=== PATIENT | male | born 1965 | race Two or more races ===

== ENCOUNTER 2017-02-13 11:16 | Emergency (ER) | payer OTHER ==
[~2017-02-13] VITALS: Ht 165.1 cm; Wt 79.4 kg
[2017-02-13] MEDS ORDERED: ALBUTEROL SULF 2.5 MG/0.5ML(0.5%) NEB SOLN NEB ONE ×2 (13:45→15:30)
[2017-02-13] MEDS ORDERED: IPRATROPIUM BROM 0.5 MG/2.5ML INH SOL NEB ONE ×2 (13:45→15:30)
[2017-02-13] MEDS ORDERED: SODIUM CHLORIDE 0.9% 1,000 ML IV ONE (13:58)
[2017-02-13] MEDS ORDERED: methylPREDNISolone SOD SUCC 125 MG/2 ML VL IV ONE (14:00)
[2017-02-13 14:16] LABS: Basophils # (auto) 0.1 uL; Eosinophils # (auto) 0.8 uL; Eosinophils % (auto) 7.8 % (0.0-7.0); Hematocrit 45.4 % (41.0-53.0); Hemoglobin 15.9 g/dL (13.5-17.5); Lymphocytes # (auto) 2.4 uL; Mean Corpuscular Hemoglobin 31.8 pg (28.0-32.0); Mean Corpuscular Hgb Conc. 35.1 g/dL (32.0-36.0); Mean Corpuscular Volume 90.8 fL (80.0-100.0); Monocytes # (auto) 0.7 uL; Monocytes % (auto) 7.1 % (0.0-12.0); Neutrophils % (auto) 60.1 % (37.0-80.0); Platelet Count (auto) 250 10^3/uL (140-450); Red Cell Distribution Width 14.3 % (11.8-14.3)
[2017-02-13 14:28] VITALS: BP 136/86
[2017-02-13 14:45] LABS: BUN/Creatinine Ratio 22.2; Calcium 8.8 mg/dL (8.5-10.1); Magnesium 2.5 mg/dL (1.6-2.6); Potassium 4.4 mmol/L (3.5-5.1)
== END 2017-02-13 16:08 | disposition home or self-care (01) ==
LOC: ER 11:16
DX: J45.901 Unspecified asthma with (acute) exacerbation (principal); F17.210 Nicotine dependence, cigarettes, uncomplicated
CPT/HCPCS: 36415; 71020; 80048; 83735; 85025; 93005; 94640; 94761; 96361; 96374; 99285; J2930; J7030

== ENCOUNTER 2017-09-25 12:54 | Emergency (ER) | payer OTHER ==
[~2017-09-25] VITALS: Ht 165.1 cm; Wt 73.0 kg
[2017-09-25 13:01] VITALS: BP 125/91
[2017-09-25] MEDS ORDERED: KETOROLAC TROMETH 60MG/2ML VIAL IM ONE (14:15)
== END 2017-09-25 14:33 | disposition home or self-care (01) ==
LOC: ER 12:54
DX: B00.89 Other herpesviral infection (principal); L03.113 Cellulitis of right upper limb; J45.909 Unspecified asthma, uncomplicated; F17.210 Nicotine dependence, cigarettes, uncomplicated
CPT/HCPCS: 96372; 99283; J1885

== ENCOUNTER 2018-02-27 12:21 | Emergency (ER) | payer SELFPAY ==
[~2018-02-27] VITALS: Ht 165.1 cm; Wt 66.7 kg
[2018-02-27 12:47] VITALS: BP 139/90
[2018-02-27] MEDS ORDERED: ALBUTEROL SULF 2.5 MG/0.5ML(0.5%) NEB SOLN NEB ONE (13:15)
[2018-02-27] MEDS ORDERED: IPRATROPIUM BROM 0.5 MG/2.5ML INH SOL NEB ONE (13:15)
== END 2018-02-27 13:55 | disposition home or self-care (01) ==
LOC: ER 12:21
DX: J45.901 Unspecified asthma with (acute) exacerbation (principal); F17.210 Nicotine dependence, cigarettes, uncomplicated; Z76.0 Encounter for issue of repeat prescription
CPT/HCPCS: 94640; 99283; J7611; J7644

== ENCOUNTER 2018-02-28 13:38 | Emergency (ER) | payer MEDICAID, OTHER ==
[~2018-02-28] VITALS: Ht 165.1 cm; Wt 66.7 kg
[2018-02-28 13:43] VITALS: BP 139/83
[2018-02-28] MEDS ORDERED: IPRATROPIUM BROM 0.5 MG/2.5ML INH SOL NEB ONE (15:15)
[2018-02-28] MEDS ORDERED: ALBUTEROL SULF 2.5 MG/0.5ML(0.5%) NEB SOLN NEB ONE (15:15)
== END 2018-02-28 15:42 | disposition home or self-care (01) ==
LOC: ER 13:38
DX: J45.909 Unspecified asthma, uncomplicated (principal); F17.210 Nicotine dependence, cigarettes, uncomplicated
CPT/HCPCS: 93005; 94640; 99283; J7611; J7644

== ENCOUNTER 2018-03-04 13:45 | Emergency (ER) | payer MEDICAID ==
[~2018-03-04] VITALS: Ht 165.1 cm; Wt 66.7 kg
[2018-03-04 14:02] VITALS: BP 148/87
[2018-03-04] MEDS ORDERED: IPRATROPIUM BROM 0.5 MG/2.5ML INH SOL NEB ONE (15:45)
[2018-03-04] MEDS ORDERED: methylPREDNISolone SOD SUCC 125 MG/2 ML VL IM ONE (15:45)
[2018-03-04] MEDS ORDERED: ALBUTEROL SULF 2.5 MG/0.5ML(0.5%) NEB SOLN NEB ONE (15:45)
== END 2018-03-04 16:19 | disposition home or self-care (01) ==
LOC: ER 13:45
DX: J45.901 Unspecified asthma with (acute) exacerbation (principal); F17.210 Nicotine dependence, cigarettes, uncomplicated
CPT/HCPCS: 93005; 94640; 96372; 99283; J2930; J7611; J7644

== ENCOUNTER 2018-09-10 16:07 | Emergency (ER) | payer MEDICAID ==
[~2018-09-10] VITALS: Ht 162.6 cm; Wt 70.3 kg
[2018-09-10] MEDS ORDERED: ALBUTEROL SULF 2.5 MG/0.5ML(0.5%) NEB SOLN NEB ONE (16:15)
[2018-09-10] MEDS ORDERED: IPRATROPIUM BROM 0.5 MG/2.5ML INH SOL NEB ONE (16:15)
[2018-09-10 16:25] VITALS: BP 130/92
[2018-09-10] MEDS ORDERED: methylPREDNISolone SOD SUCC 125 MG/2 ML VL IM ONE (17:15)
== END 2018-09-10 17:54 | disposition home or self-care (01) ==
LOC: ER 16:13
DX: J45.909 Unspecified asthma, uncomplicated (principal); F17.210 Nicotine dependence, cigarettes, uncomplicated
CPT/HCPCS: 94640; 96372; 99283; J2930; J7611; J7644

== ENCOUNTER 2019-01-07 01:15 | Inpatient (IN) | payer MEDICAID ==
[2019-01-07] VITALS (68 sets, daily range): BP systolic 117–167; BP diastolic 75–120
[~2019-01-07] VITALS: Ht 167.6 cm; Wt 70.6 kg
[2019-01-07] MEDS ORDERED: ALBUTEROL SULF 2.5 MG/0.5ML(0.5%) NEB SOLN ONE ×3 (01:36→10:27)
[2019-01-07] MEDS ORDERED: IPRATROPIUM BROM 0.5 MG/2.5ML INH SOL ONE ×2 (01:36→10:27)
[2019-01-07] MEDS ORDERED: NOREPINEPHRINE 8 MG/250ML KIT 250 ML IV ONE (01:43)
[2019-01-07] MEDS ORDERED: ALBUTEROL SULF 2.5 MG/0.5ML(0.5%) NEB SOLN NEB ONE ×2 (01:45→05:35)
[2019-01-07 02:02] LABS: Urine WBC None Seen /hpf (0 - 3)
[2019-01-07 02:05] LABS: Basophils # (auto) 0 uL; Basophils % (auto) 0.3 % (0.0-2.0); Eosinophils % (auto) 8.7 % (0.0-7.0); Hemoglobin 14.8 g/dL (13.5-17.5); Lymphocytes # (auto) 4.8 uL; Lymphocytes % (auto) 43.4 % (10.0-50.0); Mean Corpuscular Hemoglobin 31.1 pg (28.0-32.0); Mean Corpuscular Hgb Conc. 32.1 g/dL (32.0-36.0); Mean Corpuscular Volume 96.9 fL (80.0-100.0); Monocytes # (auto) 0.5 uL; Monocytes % (auto) 4.8 % (0.0-12.0); Neutrophils # (auto) 4.7 uL; Neutrophils % (auto) 42.8 % (37.0-80.0); Nucleated Red Blood Cells % 0.1 %; Platelet Count (auto) 194 10^3/uL (140-450); Red Blood Cells 4.75 10^6/uL (4.5-5.90); White Blood Cell 11.1 10^3/uL (4.4-10.8)
[2019-01-07 02:08] LABS: Urine Bacteria MANY /hpf (None Seen); Urine Blood TRACE /uL (Negative); Urine Specific Gravity 1.026 (1.001-1.035); Urine Sperm PRESENT /hpf (None Seen)
[2019-01-07 02:20] LABS: INR 1.1 (0.9-1.15); Partial Thromboplastin Time 57.6 sec (23.64-32.05)
[2019-01-07 02:26] LABS: Alcohol, Urine < 3.0 mg/dL (0-5); Amphetamine Screen, Urine POSITIVE (NEGATIVE); Barbiturate Scree,Urine NEGATIVE (NEGATIVE); Benzodiazephine Screen, Urine NEGATIVE (NEGATIVE); Cannabinoid Screen, Urine POSITIVE (NEGATIVE); Cocaine Screen, Urine NEGATIVE (NEGATIVE); Opiate Scree,Urine NEGATIVE (NEGATIVE); Phencyclidine Screen, Urine NEGATIVE (NEGATIVE)
[2019-01-07 02:26] LABS: Anion Gap 20 (5-15); Calcium 8.3 mg/dL (8.5-10.1); Carbon Dioxide 15 mmol/L (21-32); Chloride 106 mmol/L (98-107); Glucose 302 mg/dL (74-106); Magnesium 3.2 mg/dL (1.6-2.6); Sodium 141 mmol/L (136-145)
[2019-01-07 02:32] LABS: Alanine Aminotransferase 121 U/L (16-61); Alkaline Phosphatase 89 U/L (45-117); Aspartate Aminotransferase 176 U/L (15-37); BUN/Creatinine Ratio 9.7; Bilirubin, Total 0.3 mg/dL (0.2-1.0); Blood Urea Nitrogen 15 mg/dL (7-18); GFR African American 61 mL/min; GFR Non-African American 50 mL/min
[2019-01-07] MEDS ORDERED: MIDAZOLAM DRIP 50 mg/50mL 50 ML IV ONE (02:42)
[2019-01-07] MEDS ORDERED: DexAMETHasone SOD PHOS 10MG/1ML VIAL INJ ONE (02:48)
[2019-01-07] MEDS: NOREPINEPHRINE 8 MG/250ML KIT 250 ML IV SCH (03:12)
--- NOTE | 2019-01-07 03:18 | NUR ---
Respiratory note: FIO2 TITRATED TO 50% FIO2 AND VT INCREASED ON VENTILATOR FORM [address] RIOS[address] DB BLANDON MADE AWARE.
[2019-01-07] MEDS: MIDAZOLAM DRIP 50 mg/50mL 50 ML IV SCH ×3 (03:25→15:04)
[2019-01-07] MEDS ORDERED: DexAMETHasone SOD PHOS 10MG/1ML VIAL INJ IV ONE (03:45)
[2019-01-07] MEDS ORDERED: LEVETIRACETAM INJ 1,000 MG in D5W 5% 100 ML IV ONE (05:15)
[2019-01-07] MEDS ORDERED: LEVETIRACETAM 500 MG/5ML INJ IV ONE (05:19)
[2019-01-07] MEDS ORDERED: IPRATROPIUM BROM 0.5 MG/2.5ML INH SOL NEB ONE (05:35)
[2019-01-07] MEDS: SODIUM CHLORIDE 0.9% 1,000 ML IV SCH ×2 (06:00→20:24)
[2019-01-07] MEDS ORDERED: NITROGLYCERIN 0.4 MG SL TAB SL PRN (06:00)
[2019-01-07] MEDS ORDERED: ONDANSETRON HCL 4 MG/2 ML VIAL IV PRN (06:00)
[2019-01-07] MEDS ORDERED: MORPHINE SULF INJ 2 MG/ML SYRINGE 1ML IV PRN (06:00)
[2019-01-07] MEDS ORDERED: DEXTROSE (50%) 50ML SYRG IV PRN (06:45)
--- NOTE | 2019-01-07 08:50 | NUR ---
OPENING NOTE SHIFT REPORT RECEIVED FROM ADRIA AND ASSUMED CARE OF PT. PT IS INTUBATED ON VENT A/C RATE 12, TV 500, FI02 30%, PEEP 5, SIZE 8, 24CM AT THE LIP. PT IS SEDATED ON VERSED 15. IV SITES: RIGHT AC 18 GAUGE, LEFT AC 18 GAUGE, LEFT HAND 20 GAUGE. PUPILS UNEVEN AND FIXED: RIGHT 2.5, LEFT 2, NO COUGH OR GAG. PT IS EXHIBITING IRREGULAR BREATHING OVER THE VENT. VITAL SIGNS: HR 111, RR 34, TEMP 98.6 F, BP 159/96, O2SAT 100%. WILL ASK PHYSICIAN FOR FENTANYL FOR PT'S ELEVATED VITAL SIGNS AND IRREGULAR BREATHING ABOVE THE VENT. LUNG SOUNDS RHONCI AND WHEEZING AUDIBLE THROUGHOUT. BOWEL SOUNDS ABSENT. ABD SOFT, WITH SLIGHT DISTENTION. RADIAL PULSES PALPABLE AND STRONG, PEDAL PULSES WEAK WITH DOPPLER. BED IN LOWEST POSITION, SIDE RAILS UP. WILL CONTINUE TO MONITOR
--- NOTE | 2019-01-07 08:55 | NUR ---
RT NOTE: PT TRANSPORTED TO ICU BED 12 WITH RN BEDSIDE AND 2ND RT BRINGING VENT. PT BAGGED ON 15L VIA AMBU BAG. PT SUCTIONED JUST PRIOR TO TRANSPORT SECRETIONS SMALL/THICK/FISH. TRANSPORT OCCURRED W/O INCIDENT. ONCE TRANSFERRED TO ICU BED, PLACED BACK ONTO BEDSIDE VENT. TRANSFERRING CARE TO RT ABI CRAFT.
[2019-01-07] MEDS: cefTRIAXone 1GM/50ML D5W 50 ML IV SCH (09:52)
[2019-01-07] MEDS: DexAMETHasone SOD PHOS 10MG/1ML VIAL INJ IV SCH ×2 (09:53→16:00)
[2019-01-07] MEDS ORDERED: ENOXAPARIN SOD 40 MG/0.4 ML SYRINGE SC SCH (10:00)
[2019-01-07] MEDS ORDERED: BUDESONIDE (INHALATION) 0.5 MG/2 ML NEB ONE (10:27)
[2019-01-07] MEDS ORDERED: fentaNYL Drip 2500mCg/250mlNS 250 ML IV ONE (10:32)
[2019-01-07] MEDS: ALBUTEROL SULF 2.5 MG/0.5ML(0.5%) NEB SOLN NEB SCH ×4 (10:37→21:37)
[2019-01-07] MEDS: IPRATROPIUM BROM 0.5 MG/2.5ML INH SOL NEB SCH ×4 (10:37→21:37)
[2019-01-07] MEDS: fentaNYL Drip 2500mCg/250mlNS 250 ML IV SCH (10:47)
--- NOTE | 2019-01-07 11:50 | NUR ---
GILL BOX OPERATOR AT BEDSIDE
[2019-01-07] MEDS: InsuLIN REG 1unit/0.01ml Soln (100units/ml) SC SCH ×2 (11:51→18:00)
[2019-01-07] MEDS: ACCU-CHEK COMFORT CURVE STRIP VI SCH ×2 (11:54→18:00)
--- NOTE | 2019-01-07 13:30 | NUR ---
CLAY MACHINE OPERATOR AT BEDSIDE
[2019-01-07] MEDS: BUDESONIDE (INHALATION) 0.5 MG/2 ML NEB NEB SCH ×2 (14:40→18:30)
[2019-01-07] MEDS: hydrALAZINE HCL 25 MG TAB PO SCH ×2 (14:48→22:10)
[2019-01-07] MEDS: methylPREDNISolone SOD SUCC 125 MG/2 ML VL IV SCH ×2 (14:48→22:06)
--- NOTE | 2019-01-07 15:51 | NUR ---
DR. BERRY PAGED REGARDING ELEVATED TROPONIN LEVEL 0.998.
--- NOTE | 2019-01-07 16:09 | NUR ---
RECEIVED MESSAGE BACK FROM DR. BERRY HE IS AWARE. PT IS S/P CPR. NO NEW ORDERS AT THIS TIME. NEURO CONSULTED FOR FURTHER WORK UP. WILL CONTINUE TO MONITOR.
--- NOTE | 2019-01-07 16:40 | NUR ---
DR. GALO AT BEDSIDE NO NEW ORDERS AT THIS TIME
--- NOTE | 2019-01-07 16:45 | NUR ---
PT EXHIBITS WITH SPONTANEOUS SPORADIC MYOCLONIC JERKING. DR. IRAJ BRAND.
[2019-01-07] MEDS ORDERED: LEVETIRACETAM INJ 500 MG in D5W 5% 100 ML IV SCH (18:00)
--- NOTE | 2019-01-07 19:20 | NUR ---
CLOSING NOTE SHIFT REPORT GIVEN AND CARE ENDORSED TO CELESTINA ACE
[2019-01-07 19:22] LABS: Hematocrit 55.8 % (41.0-53.0); Hemoglobin 18.7 g/dL (13.5-17.5); Mean Corpuscular Hemoglobin 30.7 pg (28.0-32.0); Mean Corpuscular Hgb Conc. 33.4 g/dL (32.0-36.0); Mean Corpuscular Volume 91.8 fL (80.0-100.0); Platelet Count (auto) 220 10^3/uL (140-450); Red Blood Cells 6.08 10^6/uL (4.5-5.90); Red Cell Distribution Width 14.9 % (11.8-14.3)
[2019-01-07 19:26] LABS: White Blood Cell 34.7 10^3/uL (4.4-10.8)
[2019-01-07 19:28] LABS: Basophils % (manual) 0 (0.0-2.0); Blast Cells 0; Eosinophils % (manual) 0 (0-7); Metamyelocytes % 0; Myelocytes % 0; Promyelocytes % 0; Reactive Lymphocytes 0
[2019-01-07 19:37] LABS: INR 1.03 (0.9-1.15); Partial Thromboplastin Time 28.7 sec (23.64-32.05)
[2019-01-07 19:43] LABS: Albumin 3.5 g/dL (3.4-5.0); Bilirubin, Direct 0.2 mg/dL (0-0.2); Calcium 8.4 mg/dL (8.5-10.1); Magnesium 2.6 mg/dL (1.6-2.6)
[2019-01-07 19:46] LABS: BUN/Creatinine Ratio 18.3; Bilirubin, Total 0.3 mg/dL (0.2-1.0); Total Protein 7.5 g/dL (6.4-8.2)
--- NOTE | 2019-01-07 20:00 | NUR ---
SEDATION RESTARTED PATIENT IS HAVING IRREGULAR ABDOMINAL BREATHING AND THE RESP.RATE IS 20- 29/MIN. VERSED RESTARTED AT 5MG/HR.
[2019-01-07 20:48] LABS: Band Neutrophils % (manual) 15; Lymphocytes % (manual) 1 (10.0-50.0); Monocytes % (manual) 3 (0-12)
[2019-01-07] MEDS ORDERED: ENOXAPARIN SOD 80 MG/0.8ML SYRINGE SC SCH (22:00)
[2019-01-07] MEDS: CARVEDILOL 3.125 MG TAB PO SCH (22:07)
[2019-01-07] MEDS: ATORVASTATIN 20 MG TAB PO SCH (22:09)
--- NOTE | 2019-01-07 23:43 | NUR ---
(FOR ) NOTIFIED PT'S ELEVATED WBC LEVEL. NO ORDERS RECEIVED.
[2019-01-08] VITALS (107 sets, daily range): BP systolic 121–173; BP diastolic 75–109
[2019-01-08] MEDS: ACCU-CHEK COMFORT CURVE STRIP VI SCH ×5 (00:21→23:52)
[2019-01-08] MEDS: InsuLIN REG 1unit/0.01ml Soln (100units/ml) SC SCH ×5 (00:22→23:52)
[2019-01-08] MEDS: MIDAZOLAM DRIP 50 mg/50mL 50 ML IV SCH (00:27)
[2019-01-08] MEDS: ALBUTEROL SULF 2.5 MG/0.5ML(0.5%) NEB SOLN NEB SCH ×6 (02:07→22:29)
[2019-01-08] MEDS: IPRATROPIUM BROM 0.5 MG/2.5ML INH SOL NEB SCH ×6 (02:07→22:29)
[2019-01-08] MEDS: NOREPINEPHRINE 8 MG/250ML KIT 250 ML IV SCH (03:12)
--- NOTE | 2019-01-08 04:19 | NUR ---
RECEIVED PHONE CALL FROM [facility] AND UPDATED PT'S STATUS.
[2019-01-08 04:45] LABS: Mean Corpuscular Hgb Conc. 33.1 g/dL (32.0-36.0)
[2019-01-08 04:48] LABS: Hematocrit 53.6 % (41.0-53.0); Hemoglobin 17.7 g/dL (13.5-17.5); Mean Corpuscular Hemoglobin 30.3 pg (28.0-32.0); Mean Corpuscular Volume 91.4 fL (80.0-100.0); Platelet Count (auto) 206 10^3/uL (140-450); Red Blood Cells 5.86 10^6/uL (4.5-5.90); Red Cell Distribution Width 14.9 % (11.8-14.3)
[2019-01-08 05:04] LABS: INR 1.07 (0.9-1.15); Partial Thromboplastin Time 31.5 sec (23.64-32.05)
[2019-01-08 05:06] LABS: Potassium 4.5 mmol/L (3.5-5.1)
[2019-01-08 05:13] LABS: Calcium 8.5 mg/dL (8.5-10.1); Magnesium 2.3 mg/dL (1.6-2.6); Total Protein 6.8 g/dL (6.4-8.2)
[2019-01-08 05:15] LABS: Bilirubin, Total 0.5 mg/dL (0.2-1.0)
[2019-01-08] MEDS: hydrALAZINE HCL 25 MG TAB PO SCH ×3 (05:19→22:04)
[2019-01-08 05:21] LABS: White Blood Cell 34.8 10^3/uL (4.4-10.8)
[2019-01-08 05:22] LABS: Basophils % (manual) 0 (0.0-2.0); Blast Cells 0; Eosinophils % (manual) 0 (0-7); Metamyelocytes % 0; Myelocytes % 0; Promyelocytes % 0; Reactive Lymphocytes 0
[2019-01-08] MEDS: methylPREDNISolone SOD SUCC 125 MG/2 ML VL IV SCH ×3 (06:05→22:04)
[2019-01-08] MEDS: LABETALOL HCL 5 MG/ML ML 20ML VIAL IV PRN ×3 (06:05→23:43)
[2019-01-08 06:30] LABS: Band Neutrophils % (manual) 8; Lymphocytes % (manual) 3 (10.0-50.0); Monocytes % (manual) 4 (0-12)
--- NOTE | 2019-01-08 06:50 | NUR ---
FAMILY RECEIVED PHONE CALL FROM PT'S DAUGHTER, CONFIRMED PASSWORD AND UPDATES GIVEN.
--- NOTE | 2019-01-08 07:05 | NUR ---
OPENING NOTE SHIFT REPORT RECEIVED AND ASSUMED CARE OF PT FROM CELESTINA ACE
[2019-01-08] MEDS: SODIUM CHLORIDE 0.9% 1,000 ML IV SCH ×2 (08:26→22:04)
--- NOTE | 2019-01-08 08:45 | NUR ---
DR. BERRY AT BEDSIDE ORDERS RECEIVED
[2019-01-08] MEDS: cefTRIAXone 1GM/50ML D5W 50 ML IV SCH (09:09)
[2019-01-08] MEDS: BUDESONIDE (INHALATION) 0.5 MG/2 ML NEB NEB SCH ×2 (09:40→22:29)
[2019-01-08] MEDS: ENOXAPARIN SOD 80 MG/0.8ML SYRINGE SC SCH ×2 (10:23→22:05)
[2019-01-08] MEDS: ASPirin 81 mg TAB PO SCH (10:23)
[2019-01-08] MEDS: CARVEDILOL 3.125 MG TAB PO SCH ×2 (10:24→22:05)
--- NOTE | 2019-01-08 11:00 | NUR ---
FAMILY MEETING DR. GALO WITH THIS RN PRESENT. SPOKE WITH MOTHER AND SISTER REGARDING PT STATUS AND PROGNOSIS. FAMILY VERBALIZES UNDERSTANDING AND STATES THEY WILL SPEAK WITH PT'S DAUGHTER-NEXT OF KIN. NO FURTHER QUESTIONS OR CONCERNS AT THIS TIME
--- NOTE | 2019-01-08 11:00 | NUR ---
FURNITURE SERVICER AT BEDSIDE
--- NOTE | 2019-01-08 11:35 | NUR ---
EEG COMPLETED AT BEDSIDE. DB BRAND.
[2019-01-08] MEDS: fentaNYL Drip 2500mCg/250mlNS 250 ML IV SCH (12:14)
--- NOTE | 2019-01-08 13:30 | NUR ---
DR. AMAYA AT BEDSIDE NO NEW ORDERS
--- NOTE | 2019-01-08 14:00 | NUR ---
WOUND CARE NOTE: Wound care consult received because patient is intubated and sedated. Patient is a 53yo male admitted for s/p CPR and anoxic brain injury. Patient with a history of asthma and meth use. Patient seen with bedside RNHeather. Patient is intubated and sedated with no signs or symptoms of pain. Last Justice score is 12. Patient skin is intact. No wounds noted. RECOMMENDATIONS: Dietary consult; Turn q2hrs; Nursing to cleanse skin to buttocks with mild soap and water, pat dry, apply ZGUARD BID/PRN soiling, may apply a sacral OPTIFOAM GENTLE dressing to prevent friction/shear injury; wound care team to follow while intubated and justice <18.
--- NOTE | 2019-01-08 16:00 | NUR ---
RECEIVED CALL FROM GILBERTO WITH [facility]. UPDATED ON PT STATUS. WOULD LIKE A CALL IF PLAN OF CARE CHANGES, ANY SIGNIFICANT CHANGES, OR WITHDRAWAL OF LIFE SUPPORT.
--- NOTE | 2019-01-08 19:05 | NUR ---
OPENING SHIFT RECEIVED REPORT FROM DAY SHIFT RN. ASSUMED CARE OF PATIENT. PATIENT IN BED SEDATED AND INTUBATED SIZE 8, 26 AT THE LIP, WITH NO SIGNS OF SOB, PAIN OR DISTRESS. CURRENTLY ON AC 12/TV 500/PEEP 5/ FI02 30%, 02 SAT - 96%. OG TUBE CONNECTED TO LOW INTERMITTENT SUCTION. RIGHT ANTECUBITAL, LEFT ANTECUBITAL AND LEFT HAND IV - CLEAN/DRY/INTACT. DRUMMOND HUNG TO GRAVITY ON BED RAIL. REPOSITIONED FOR COMFORT. SCDS IN PLACE. BED IN LOWEST POSITION, SIDE RAILS UP X2, CALL LIGHT WITHIN REACH. WILL CONTINUE TO MONITOR.
--- NOTE | 2019-01-08 19:05 | NUR ---
CLOSING NOTE SHIFT REPORT GIVEN AND CARE ENDORSED TO BILLYPRINCE
--- NOTE | 2019-01-08 20:19 | NUR ---
SPOKE WITH DAUGHTER (LAURA) UPDATED HER ON PLAN OF CARE.
[2019-01-09] VITALS (101 sets, daily range): BP systolic 131–226; BP diastolic 79–136
[2019-01-09] MEDS: MIDAZOLAM DRIP 50 mg/50mL 50 ML IV SCH (02:19)
[2019-01-09] MEDS: IPRATROPIUM BROM 0.5 MG/2.5ML INH SOL NEB SCH ×6 (02:30→22:36)
[2019-01-09] MEDS: ALBUTEROL SULF 2.5 MG/0.5ML(0.5%) NEB SOLN NEB SCH ×6 (02:30→22:36)
[2019-01-09] MEDS: NOREPINEPHRINE 8 MG/250ML KIT 250 ML IV SCH (03:12)
[2019-01-09 03:48] LABS: Hemoglobin 16.2 g/dL (13.5-17.5); Mean Corpuscular Volume 90.9 fL (80.0-100.0); Red Cell Distribution Width 14.7 % (11.8-14.3)
--- NOTE | 2019-01-09 03:50 | NUR ---
MORNING CARE PERFORMED MORNING CARE WITH CHG WIPES AND WASH CLOTHS TO THE FACE. PARTIAL LINEN CHANGE AND GOWN CHANGED. ORAL CARE PERFORMED. SKIN REASSESSED AT THIS TIME. REPOSITIONED FOR COMFORT. WILL CONTINUE TO MONITOR.
[2019-01-09 03:52] LABS: Hematocrit 47.4 % (41.0-53.0); Mean Corpuscular Hgb Conc. 34.1 g/dL (32.0-36.0); Platelet Count (auto) 172 10^3/uL (140-450); Red Blood Cells 5.21 10^6/uL (4.5-5.90)
[2019-01-09 04:08] LABS: Calcium 8.6 mg/dL (8.5-10.1); Magnesium 2.3 mg/dL (1.6-2.6); Potassium 4.3 mmol/L (3.5-5.1)
[2019-01-09 04:10] LABS: BUN/Creatinine Ratio 36.6
[2019-01-09 04:17] LABS: Basophils % (manual) 0 (0.0-2.0); Blast Cells 0; Eosinophils % (manual) 0 (0-7); Metamyelocytes % 0; Myelocytes % 0; Promyelocytes % 0; Reactive Lymphocytes 0
--- NOTE | 2019-01-09 05:06 | NUR ---
SPOKE WITH BOB FROM [facility] AND UPDATED HER ON PATIENT STATUS.
[2019-01-09] MEDS: InsuLIN REG 1unit/0.01ml Soln (100units/ml) SC SCH ×4 (05:45→23:58)
[2019-01-09] MEDS: ACCU-CHEK COMFORT CURVE STRIP VI SCH ×4 (05:46→23:58)
[2019-01-09] MEDS: hydrALAZINE HCL 25 MG TAB PO SCH ×3 (05:50→22:11)
[2019-01-09] MEDS: methylPREDNISolone SOD SUCC 125 MG/2 ML VL IV SCH ×3 (05:50→22:10)
[2019-01-09 06:09] LABS: Band Neutrophils % (manual) 3; Lymphocytes % (manual) 2 (10.0-50.0); Monocytes % (manual) 1 (0-12)
--- NOTE | 2019-01-09 07:30 | NUR ---
END OF SHIFT REPORT GIVEN TO DAY SHIFT RN.
--- NOTE | 2019-01-09 07:45 | NUR ---
OPENING NOTE Report received from Harsh ACE, care assumed. Patient is intubated and under sedation of Versed and Fentanyl. Afebrile. Physical assessment performed. Pupils fixed, no cough or gag noted. Lungs have notable wheeze, tolerating ventilator. Vital signs stable at this time. Guerrero catheter patent, hung below bladder. See skin assessment. Bed locked in lowest position, alarms in place. Will continue to monitor.
--- NOTE | 2019-01-09 07:50 | NUR ---
MD VISIT at bedside. MD aware of sedation in use. MD assessing patient and reviewing chart.
[2019-01-09] MEDS: fentaNYL Drip 2500mCg/250mlNS 250 ML IV SCH (08:55)
[2019-01-09] MEDS: cefTRIAXone 1GM/50ML D5W 50 ML IV SCH (08:55)
--- NOTE | 2019-01-09 09:14 | NUR ---
NEPHROLOGY CONSULT at bedside for consult.
[2019-01-09] MEDS: ASPirin 81 mg TAB PO SCH (09:35)
[2019-01-09] MEDS: ENOXAPARIN SOD 80 MG/0.8ML SYRINGE SC SCH (09:35)
[2019-01-09] MEDS: CARVEDILOL 3.125 MG TAB PO SCH (09:35)
[2019-01-09] MEDS: SODIUM CHLORIDE 0.9% 1,000 ML IV SCH (09:35)
[2019-01-09] MEDS ORDERED: VANCOMYCIN PER PHARMACY 0 MG IV SCH (10:00)
--- NOTE | 2019-01-09 10:21 | NUR ---
MD VISIT at bedside speaking with patient mother and daughter about plan of care. All questions and concerns addressed at this time.
--- NOTE | 2019-01-09 10:40 | NUR ---
FAMILY Patient daughter and mother at bedside. Updated on plan of care.
[2019-01-09] MEDS: BUDESONIDE (INHALATION) 0.5 MG/2 ML NEB NEB SCH ×2 (10:48→18:26)
--- NOTE | 2019-01-09 11:10 | NUR ---
SEDATION Sedation titrated off per request. MD at bedside discussing plan of care with patient daughter and mother. All questions and concerns addressed. Patient is agonally breathing, rate decreased and irregular. Oxygen saturation 98%. No other distress noted. Lung sounds have wheezing noted. Small run of ventricular tachycardia noted immediately after breathing pattern change noted. No ventilator changes ordered at this time. Continue care.
[2019-01-09] MEDS: LABETALOL HCL 5 MG/ML ML 20ML VIAL IV PRN ×6 (11:16→22:58)
[2019-01-09] MEDS: VANCOMYCIN 1GM/250ML 250 ML IV SCH ×2 (11:16→22:35)
--- NOTE | 2019-01-09 11:16 | NUR ---
HYPERTENSION Patient blood pressure elevated more since sedation has been titrated off. PRN Labetalol given, will continue to monitor.
--- NOTE | 2019-01-09 11:33 | NUR ---
Received a consult for patient to receive information regarding ETOH/Substance abuse. Unable to provide information at this time as patient in on a ventilator. Addendum: 01/09/19 at 1134 by GISSELLE GREGORIO SS Amended: Links added.
--- NOTE | 2019-01-09 11:35 | NUR ---
NUTRITION CONSULT/ASSESSMENT NOTES Please refer to link notes of nutrition screen form filed under the intervention section of the plan of care for further details. Est. Needs: 1750 kcal to 2100 kcal (25-30 kcal/kgBW), 71 gms to 85 gms pro (1.0-1.2 gms/kgBW). Will continue to monitor pertinent labs and reassess nutrient need prn Thank you for this consult. Addendum: 01/09/19 at [address] Amended: Links added.
--- NOTE | 2019-01-09 13:16 | NUR ---
HYPERTENSION Patient blood pressure elevated. PRN Labetalol given, will continue to monitor.
--- NOTE | 2019-01-09 14:42 | NUR ---
Called/paged Dr. Wolff called re:Hypertension. Waiting for call back. Continue care.
--- NOTE | 2019-01-09 15:16 | NUR ---
HYPERTENSION Patient blood pressure elevated with systolic greater than 200. PRN Labetalol given, will continue to monitor.
--- NOTE | 2019-01-09 15:16 | NUR ---
Called/paged Dr. Wolff called re:Hypertension. Waiting for call back. Continue care.
--- NOTE | 2019-01-09 15:58 | NUR ---
Called/paged Dr. Schwartz called re:elevated blood pressure. Orders received. Continue care.
[2019-01-09] MEDS: hydrALAZINE HCL 20 MG/ML VL IV PRN ×2 (16:26→23:23)
--- NOTE | 2019-01-09 16:26 | NUR ---
HYPERTENSION Patient blood pressure elevated greater than 200 systolic with diastolic in 100's. PRN Hydralazine given, will continue to monitor.
--- NOTE | 2019-01-09 17:19 | NUR ---
returned call Dr. Wolff returned call, updated on patient status and reason for call, orders received. Continue care.
[2019-01-09] MEDS ORDERED: amLODIPine BESYLATE 5 MG TAB PO ONE (17:30)
--- NOTE | 2019-01-09 19:15 | NUR ---
OPENING SHIFT RECEIVED REPORT FROM DAY SHIFT RN. ASSUMED CARE OF PATIENT. PATIENT IS VENTED AND CURRENTLY OFF SEDATION SHOWING SIGNS OF GUPPY BREATHING, BLOOD PRESSURE - 199/118. RESTARTED ON VERSED GTT AT 2MG/HR TO KEEP PATIENT COMFORTABLE. ENDOTRACHEAL TUBE SIZE 8, 26 AT THE LIP, AC 12 /TV 500/ FIO2 100% / PEEP 5, 02 SAT - 99%. OG TUBE - 55 AT THE LIP, PLACEMENT VERIFIED VIA AUSCULTATION, CONNECTED TO LOW INTERMITTENT SUCTION. RIGHT ANTECUBITAL, LEFT ANTECUBITAL AND LEFT HAND IV - CLEAN/DRY/INTACT. DRUMMOND HUNG TO GRAVITY ON BED RAIL. REPOSITIONED FOR COMFORT. BED IN LOWEST POSITION, SIDE RAILS UP X2, CALL LIGHT WITHIN REACH. WILL CONTINUE TO MONITOR. Addendum: 01/09/19 at 2035 by LI FINK RN RN * ABSENT GAG AND COUGH REFLEX WHEN SUCTIONED.
--- NOTE | 2019-01-09 19:18 | NUR ---
REPORT Report given to Harsh ACE, care endorsed.
--- NOTE | 2019-01-09 19:30 | NUR ---
BLOOD PRESSURE PATIENT BLOOD PRESSURE GREATER THAN 190 SYSTOLIC WITH DIASTOLIC IN THE 110'S. PRN LABETALOL GIVEN, WILL CONTINUE TO MONITOR.
--- NOTE | 2019-01-09 20:05 | NUR ---
NEURO AND SEDATION PATIENT CONTINUES TO HAVE GUPPY BREATHING AND JERKY HEAD MOVEMENTS. VERSED INCREASED TO 3MG. WILL CONTINUE TO MONITOR.
--- NOTE | 2019-01-09 21:05 | NUR ---
ROUNDS PATIENT SEDATED WITH NO SIGNS OF GUPPY BREATHING. WILL CONTINUE TO MONITOR.
[2019-01-09] MEDS ORDERED: CARVEDILOL 3.125 MG TAB PO SCH (22:00)
[2019-01-09] MEDS: CARVEDILOL 12.5 MG TAB PO SCH (22:11)
--- NOTE | 2019-01-09 23:00 | NUR ---
BLOOD PRESSURE ELEVATED BLOOD PRESSURE, PRN LABETALOL GIVEN. WILL CONTINUE TO MONITOR.
--- NOTE | 2019-01-09 23:01 | NUR ---
NEURO AND SEDATION PATIENT CONTINUES TO HAVE ELEVATED BLOOD PRESSURE AND JERKY HEAD MOVEMENTS. FENTANYL STARTED AT 25MCG. WILL CONTINUE TO MONITOR.
--- NOTE | 2019-01-09 23:25 | NUR ---
BLOOD PRESSURE BLOOD PRESSURE CONTINUES TO STAY ELEVATED, PRN HYDRALAZINE GIVEN. WILL CONTINUE TO MONITOR.
[2019-01-10] VITALS (104 sets, daily range): BP systolic 114–206; BP diastolic 74–124
--- NOTE | 2019-01-10 00:27 | NUR ---
NEURO/SEDATION/BLOOD PRESSURE. PATIENT APPEARS TO BE COMFORTABLY BREATHING, TOLERATING THE VENT. CURRENTLY ON VERSED AND FENTANYL - SEE IV SPREADSHEET. BLOOD PRESSURE CONTINUES TO STAY ELEVATED AT 155/104, HEART RATE - 104, RESPIRATIONS AT 20, 02 SAT - 95%. WILL CONTINUE TO MONITOR.
[2019-01-10] MEDS: SODIUM CHLORIDE 0.9% 1,000 ML IV SCH ×2 (01:00→16:53)
[2019-01-10] MEDS: LABETALOL HCL 5 MG/ML ML 20ML VIAL IV PRN ×4 (01:15→17:33)
[2019-01-10] MEDS: ALBUTEROL SULF 2.5 MG/0.5ML(0.5%) NEB SOLN NEB SCH ×6 (01:41→22:09)
[2019-01-10] MEDS: IPRATROPIUM BROM 0.5 MG/2.5ML INH SOL NEB SCH ×6 (01:41→22:09)
[2019-01-10] MEDS: NOREPINEPHRINE 8 MG/250ML KIT 250 ML IV SCH (03:12)
--- NOTE | 2019-01-10 03:30 | NUR ---
MORNING CARE PERFORMED MORNING CARE WITH CHG WIPES AND WASH CLOTHS TO THE FACE. PARTIAL LINEN CHANGE AND GOWN CHANGED. ORAL CARE AND DRUMMOND CARE PERFORMED. REPOSITIONED FOR COMFORT. BED IN LOWEST POSITION, SIDE RAILS UP X2, CALL LIGHT WITHIN REACH. WILL CONTINUE TO MONITOR.
[2019-01-10] MEDS: MIDAZOLAM DRIP 50 mg/50mL 50 ML IV SCH ×3 (03:45→20:54)
[2019-01-10 04:57] LABS: Albumin 2.7 g/dL (3.4-5.0); BUN/Creatinine Ratio 44.6; Bilirubin, Total 0.5 mg/dL (0.2-1.0); Calcium 8.5 mg/dL (8.5-10.1); Total Protein 6.3 g/dL (6.4-8.2)
[2019-01-10] MEDS: methylPREDNISolone SOD SUCC 125 MG/2 ML VL IV SCH ×3 (05:15→22:39)
[2019-01-10] MEDS: InsuLIN REG 1unit/0.01ml Soln (100units/ml) SC SCH ×3 (06:00→17:40)
[2019-01-10] MEDS: ACCU-CHEK COMFORT CURVE STRIP VI SCH ×3 (06:00→17:33)
[2019-01-10] MEDS: hydrALAZINE HCL 25 MG TAB PO SCH ×3 (06:32→22:40)
--- NOTE | 2019-01-10 07:05 | NUR ---
END OF SHIFT REPORT GIVEN TO DAY SHIFT RN.
--- NOTE | 2019-01-10 08:00 | NUR ---
SEDATION Fentanyl sedation titrated off. No distress noted. Patient tolerating ventilator at this time. Will continue to monitor.
--- NOTE | 2019-01-10 08:12 | NUR ---
MD VISIT at bedside. MD aware of sedation in use. MD assessing patient and reviewing chart.
[2019-01-10] MEDS: cefTRIAXone 1GM/50ML D5W 50 ML IV SCH (09:17)
[2019-01-10] MEDS: amLODIPine BESYLATE 5 MG TAB PO SCH (09:19)
[2019-01-10] MEDS: ASPirin 81 mg TAB PO SCH (09:20)
[2019-01-10] MEDS: CARVEDILOL 12.5 MG TAB PO SCH ×2 (09:20→22:40)
--- NOTE | 2019-01-10 09:30 | NUR ---
CT Patient transported to radiology for CT head. RT, RN, and septic tank service technician at bedside. Vitals stable at this time. Patient on sedation of versed. Will continue to monitor.
--- NOTE | 2019-01-10 09:40 | NUR ---
MICROBIOLOGY Patient MRSA positive, placed on contact isolation.
--- NOTE | 2019-01-10 09:57 | NUR ---
assessment Patient is a 53 year old male on a vent. Patients mother and sister were at bedside. Per patients mother Sabiha prior to admission patient lived home with his girlfriend and was independent. Per Sabiha patient was having a asthma attack, he tried his nebulizer machine and it did not work. Patient then passed out then had an MS. Patient was brought to ER by [facility] and admitted to ICU and has been on a vent. I informed Sabiha we would discuss patients discharge needs at a later time. Patient may be terminally weaned. Per Sabiha we will talk later after all of family arrives. Sabiha verbalized understanding. Addendum: 01/11/19 at 1006 by Tanja BARBOSA Amended: Links added.
[2019-01-10] MEDS ORDERED: ENOXAPARIN SOD 40 MG/0.4 ML SYRINGE SC SCH (10:00)
[2019-01-10] MEDS: BUDESONIDE (INHALATION) 0.5 MG/2 ML NEB NEB SCH ×2 (10:06→22:09)
--- NOTE | 2019-01-10 10:20 | NUR ---
HYPERTENSION Patient blood pressure elevating greater than 200 systolic. PRN labetalol administered and sedation increased. Will continue to monitor and reassess.
[2019-01-10] MEDS: fentaNYL Drip 2500mCg/250mlNS 250 ML IV SCH (10:23)
--- NOTE | 2019-01-10 10:28 | NUR ---
Called/paged Dr. Pacheco called re: Head CT results and meeting with family. Waiting for call back. Continue care.
--- NOTE | 2019-01-10 10:43 | NUR ---
[facility] Max from [facility] called for update.
--- NOTE | 2019-01-10 10:50 | NUR ---
2nd attempt: Called/paged Dr. Pacheco called re: Head CT results and meeting with family. Waiting for call back. Continue care.
[2019-01-10] MEDS: VANCOMYCIN 1GM/250ML 250 ML IV SCH ×2 (11:07→23:00)
--- NOTE | 2019-01-10 12:30 | NUR ---
returned call Dr. Pacheco returned call, updated on patient status and reason for call, still attempting to reach to get second opinion on Head CT results before MD speaking with family. Continue care.
--- NOTE | 2019-01-10 13:20 | NUR ---
RADIOLOGY Spoke with kiel, will notify of Head CT request for interpretation and to notify .
--- NOTE | 2019-01-10 13:59 | NUR ---
FAMILY MEETING met with family in his clinic to discuss Brain CT and EEG results. Family requesting second opinion. Daiana oden.
--- NOTE | 2019-01-10 14:57 | NUR ---
LINEN Complete linen changes performed. Skin assessment complete. Patient tolerated activity well. Vitals stable.
[2019-01-10] MEDS: MUPIROCIN 2% OINT 15gm or 22gm EACHNOSTRI SCH ×2 (17:26→22:39)
--- NOTE | 2019-01-10 19:20 | NUR ---
open assumed care of male pt orally intubated and sedated on [id number]/hr, and ns at 75ml/hr. pt has ogt clamped. pt is connected to icu monitors and vs are stable. pt has no gag or cough, pupils are fixed and unequal. pt has l ac 18g iv, l hand 20g iv, and a R ac 18 g iv. all ivs flush and are patent. all iv dressings are clean and dry. no ss of redness or swelling noted at this time. pt has Guerrero hanging below bladder draining to gravity. pt has compression device on bilaterally to lower extremities. no ss of distress noted from pt at this time.suction is connected and at bedside. pillows are in place under pradip prominences to offload pressure for pts comfort and safety. the bed is in the lowest position, wheels are locked, hob is 40*, side rails are up x3. pt is in full view of rn station, will continue to care for and monitor pt.
--- NOTE | 2019-01-10 19:46 | NUR ---
REPORT Report given to Maddie ACE, care endorsed.
--- NOTE | 2019-01-10 20:15 | NUR ---
pt tolerates care pt tolerates care and turns. pt vs are stable. no ss of distress noted at this time. will continue to care for and monitor
--- NOTE | 2019-01-10 21:00 | NUR ---
family called pts brother called, provided password and was updated on pts current condition. all questions and concerns addressed at this time. brother name is ellen, ellen said he is goign to try to come up to see him tonight 01/10/19. ellen requested to be updated on any new news. will update pts brother with any new pertinent changes.
--- NOTE | 2019-01-10 21:31 | NUR ---
family called pts daughter called, provided password and was updated on pts current condition. all questions and concerns addressed at this time. will update pt daughter with any new pertinent changes.
--- NOTE | 2019-01-10 23:05 | NUR ---
no ss of distress no ss of distress noted at this time. pt vs are stable. will continue to monitor
[2019-01-11] VITALS (102 sets, daily range): BP systolic 108–197; BP diastolic 65–124
--- NOTE | 2019-01-11 01:15 | NUR ---
elevated temp pt temperature is elevated, cooling measures are now in place. will monitor and reevaluate.
[2019-01-11] MEDS: ALBUTEROL SULF 2.5 MG/0.5ML(0.5%) NEB SOLN NEB SCH ×6 (02:10→22:02)
[2019-01-11] MEDS: IPRATROPIUM BROM 0.5 MG/2.5ML INH SOL NEB SCH ×6 (02:10→22:03)
--- NOTE | 2019-01-11 02:34 | NUR ---
[facility] called spoke with [facility]. wanted update on pts status and vs.
[2019-01-11] MEDS: NOREPINEPHRINE 8 MG/250ML KIT 250 ML IV SCH (03:12)
[2019-01-11] MEDS: SODIUM CHLORIDE 0.9% 1,000 ML IV SCH ×2 (03:35→07:42)
--- NOTE | 2019-01-11 05:02 | NUR ---
hygiene preformed bed bath on pt. william change and suction canisters changed. pt tolerated care. no ss of distress noted at this time.
[2019-01-11] MEDS: ACCU-CHEK COMFORT CURVE STRIP VI SCH ×4 (05:55→17:50)
[2019-01-11] MEDS: methylPREDNISolone SOD SUCC 125 MG/2 ML VL IV SCH ×3 (05:55→22:43)
[2019-01-11] MEDS: hydrALAZINE HCL 25 MG TAB PO SCH ×3 (05:55→22:43)
[2019-01-11] MEDS ORDERED: VANCOMYCIN PER PHARMACY 0 MG IV SCH (06:00)
[2019-01-11] MEDS: InsuLIN REG 1unit/0.01ml Soln (100units/ml) SC SCH ×4 (06:08→17:50)
--- NOTE | 2019-01-11 07:27 | NUR ---
PAGED DR. JENN JOHNSON FOR CRITICAL ABG RESULTS. AWAITING CALL BACK.
--- NOTE | 2019-01-11 07:30 | NUR ---
Dr. Pacheco at bedside: Updated me on patients poor prognosis and candidate for [facility].
--- NOTE | 2019-01-11 08:00 | NUR ---
Opening Shift Note: Report received from DB Perkins. Patient scheduled to see Dr. Peterson for second opinion. Patient may be [facility] candidate.
--- NOTE | 2019-01-11 08:15 | NUR ---
Spoke to Dr. Pinto: New orders given: Hep B & C panel, HIV panel,. and ABG.
--- NOTE | 2019-01-11 08:58 | NUR ---
Sent Dr. Pinto message with ABG results.
--- NOTE | 2019-01-11 09:00 | NUR ---
[facility] updated on patient status and labs.
[2019-01-11] MEDS: BUDESONIDE (INHALATION) 0.5 MG/2 ML NEB NEB SCH ×2 (09:52→18:20)
[2019-01-11] MEDS: fentaNYL Drip 2500mCg/250mlNS 250 ML IV SCH (10:23)
[2019-01-11] MEDS: CARVEDILOL 12.5 MG TAB PO SCH ×2 (10:51→22:43)
[2019-01-11] MEDS: ASPirin 81 mg TAB PO SCH (10:51)
[2019-01-11] MEDS: cefTRIAXone 1GM/50ML D5W 50 ML IV SCH (10:52)
[2019-01-11] MEDS: amLODIPine BESYLATE 5 MG TAB PO SCH (10:52)
[2019-01-11] MEDS: MUPIROCIN 2% OINT 15gm or 22gm EACHNOSTRI SCH ×2 (10:52→22:00)
[2019-01-11 11:11] LABS: Hematocrit 49.1 % (41.0-53.0); Hemoglobin 16.4 g/dL (13.5-17.5); Mean Corpuscular Hemoglobin 30.2 pg (28.0-32.0); Mean Corpuscular Hgb Conc. 33.4 g/dL (32.0-36.0); Mean Corpuscular Volume 90.4 fL (80.0-100.0); Platelet Count (auto) 135 10^3/uL (140-450); Red Blood Cells 5.44 10^6/uL (4.5-5.90); Red Cell Distribution Width 14.3 % (11.8-14.3); White Blood Cell 20.6 10^3/uL (4.4-10.8)
[2019-01-11 11:17] LABS: Basophils % (manual) 0 (0.0-2.0); Blast Cells 0; Eosinophils % (manual) 0 (0-7); Metamyelocytes % 0; Myelocytes % 0; Promyelocytes % 0; Reactive Lymphocytes 0
[2019-01-11 11:33] LABS: Potassium 3.9 mmol/L (3.5-5.1)
[2019-01-11 11:51] LABS: Albumin 2.4 g/dL (3.4-5.0); BUN/Creatinine Ratio 44.3; Bilirubin, Total 0.4 mg/dL (0.2-1.0); Calcium 8.4 mg/dL (8.5-10.1); Total Protein 5.7 g/dL (6.4-8.2)
[2019-01-11 12:25] LABS: Band Neutrophils % (manual) 10; Lymphocytes % (manual) 2 (10.0-50.0); Monocytes % (manual) 4 (0-12)
--- NOTE | 2019-01-11 12:41 | NUR ---
Nutrition Follow-up Notes Wt.: 70.6 kg Pt continues to be intubated sedated with no family by bedside. per records pt for possible terminal wean. pt is currently NPO with no new diet orders Est. Needs: 1750 kcal to 2100 kcal (25-30 kcal/kgBW), 71 gms to 85 gms pro (1.0-1.2 gms/kgBW). Will continue to monitor pertinent labs and reassess nutrient need prn Labs: BUN 29 H, GLU 130 H, ALB 2.7 L. Skin: Justice scale 11, high risk, skin intact per potato chip maker. GI: Pt's no bowel activity reported with 200 ml gastric drainage per potato chip maker. PES: Increased nutrient needs r.t current chronic medical condition aeb intubated, sedated, mild hypoalbuminemia, NPO. Altered nutrition related lab values r/t current/chronic medical condition aeb hyperglycemia, hyperchloremia, elev. BUN, Trop I, LFTs and mild hypoalbuminemia Will continue to monitor NPO status, skin status, pertinent labs and weight trend. F/u in 2-3 days. Rec.: 1.) If still NPO in next48 hrs, consider alternate nutrition support if medically appropriate. 2.) EN support preferred with formula choice of Jevity 1.2 Gilles @ 65 ml/hr goal rate as tolerated. 3.) If Albumin continues trending down, consider Prostat 1 pkt BID. 4.) Advance gradually to oral diet when medically appropriate. 5.) Refer to RD for further nutrition educ. and weight monitoring upon discharge. 6.) Continue current plan of care.
--- NOTE | 2019-01-11 13:15 | NUR ---
CHG bath given.
--- NOTE | 2019-01-11 17:00 | NUR ---
Dr. Schwartz at bedside: AM labs ordered.
[2019-01-11] MEDS: VANCOMYCIN 1,250 MG in D5W 5% 250 ML IV SCH (17:50)
--- NOTE | 2019-01-11 18:57 | NUR ---
Endorsed care to DB Perkins .
--- NOTE | 2019-01-11 19:10 | NUR ---
open assumed care of male pt orally intubated and sedated on versed 3mg/hr, and fentanyl 50mcg/hr and ns at 75ml/hr. pt has ogt clamped. pt is connected to icu monitors and vs are stable. pt has no gag or cough, pupils are fixed and unequal. pt has l ac 18g iv, l hand 20g iv, and a R ac 18 g iv. all ivs flush and are patent. all iv dressings are clean and dry. no ss of redness or swelling noted at this time. pt has Guerrero hanging below bladder draining yellow urine to gravity. pt has compression device on bilaterally to lower extremities. no ss of distress noted from pt at this time.suction is connected and at bedside. pillows are in place under pradip prominences to offload pressure for pts comfort and safety. the bed is in the lowest position, wheels are locked, hob is 40*, side rails are up x3. pt is in full view of rn station, will continue to care for and monitor pt.
--- NOTE | 2019-01-11 19:52 | NUR ---
Respiratory note: NEW VENT ORDERS PER DR. Silvana JOHNSON: AC 20/500/+5. FIO2 INCREASED TO 60%, RN NOTIFIED. ABG TO FOLLOW IN ONE HOUR.
--- NOTE | 2019-01-11 20:38 | NUR ---
NAI FROM [facility] CALLED CALLED FOR UPDATE ON PT VS AND CURRENT STATUS.ALL QUESTIONS ANSWERED AT THIS TIME, NO FURTHER QUESTIONS AT THIS TIME.
--- NOTE | 2019-01-11 22:31 | NUR ---
Respiratory note: ABG RESULTS REPORTED TO DR. Silvana TALAVERA. NO NEW RESPIRATORY ORDERS GIVEN AT THIS TIME, WILL CONTINUE TO MONITOR.
--- NOTE | 2019-01-11 22:48 | NUR ---
PT SISTER CALLED PROVIDED PW , CURRENT VS AND STATUS PROVIDED TO PTS SISTER. NO FURTHER QUESTIONS AT THIS TIME.
--- NOTE | 2019-01-11 23:09 | NUR ---
no distress noted pt is still intubated and sedated laying in bed, no ss of distress noted at this time.
[2019-01-12] VITALS (90 sets, daily range): BP systolic 106–217; BP diastolic 61–125
[2019-01-12] MEDS: ALBUTEROL SULF 2.5 MG/0.5ML(0.5%) NEB SOLN NEB SCH ×6 (02:22→22:18)
[2019-01-12] MEDS: IPRATROPIUM BROM 0.5 MG/2.5ML INH SOL NEB SCH ×6 (02:22→22:18)
[2019-01-12] MEDS: MIDAZOLAM DRIP 50 mg/50mL 50 ML IV SCH ×3 (03:12→17:26)
[2019-01-12] MEDS: NOREPINEPHRINE 8 MG/250ML KIT 250 ML IV SCH (03:12)
[2019-01-12 04:00] LABS: Basophils # (auto) 0 uL; Basophils % (auto) 0.1 % (0.0-2.0); Eosinophils # (auto) 0 uL; Hematocrit 47.1 % (41.0-53.0); Hemoglobin 16.4 g/dL (13.5-17.5); Lymphocytes # (auto) 0.4 uL; Lymphocytes % (auto) 2.1 % (10.0-50.0); Mean Corpuscular Hemoglobin 31.1 pg (28.0-32.0); Mean Corpuscular Hgb Conc. 34.8 g/dL (32.0-36.0); Mean Corpuscular Volume 89.3 fL (80.0-100.0); Monocytes # (auto) 0.6 uL; Monocytes % (auto) 3.1 % (0.0-12.0); Neutrophils # (auto) 19.4 uL; Neutrophils % (auto) 94.7 % (37.0-80.0); Platelet Count (auto) 133 10^3/uL (140-450); Red Blood Cells 5.27 10^6/uL (4.5-5.90); Red Cell Distribution Width 14.4 % (11.8-14.3); White Blood Cell 20.5 10^3/uL (4.4-10.8)
[2019-01-12 04:45] LABS: Albumin 2.4 g/dL (3.4-5.0); Calcium 8.4 mg/dL (8.5-10.1); Potassium 4.2 mmol/L (3.5-5.1)
[2019-01-12 04:48] LABS: BUN/Creatinine Ratio 55.2
[2019-01-12 04:51] LABS: Bilirubin, Total 0.5 mg/dL (0.2-1.0); Total Protein 5.8 g/dL (6.4-8.2)
[2019-01-12] MEDS: InsuLIN REG 1unit/0.01ml Soln (100units/ml) SC SCH ×5 (06:00→23:55)
[2019-01-12] MEDS: methylPREDNISolone SOD SUCC 125 MG/2 ML VL IV SCH ×3 (06:10→21:38)
[2019-01-12] MEDS: hydrALAZINE HCL 25 MG TAB PO SCH ×3 (06:10→21:39)
[2019-01-12] MEDS: VANCOMYCIN 1,250 MG in D5W 5% 250 ML IV SCH ×2 (06:11→17:25)
[2019-01-12] MEDS: SODIUM CHLORIDE 0.9% 1,000 ML IV SCH (06:11)
[2019-01-12] MEDS: ACCU-CHEK COMFORT CURVE STRIP VI SCH ×5 (06:11→23:19)
--- NOTE | 2019-01-12 08:40 | NUR ---
FAMILY PHONE CALL: Received phone call from patient's daughter Yoli. Daughter is requesting a transfer to [facility] for further neurological care, daughter states that she would like for the patient to be transferred to [facility] or [facility]. Informed her that this will be discussed with the physician during rounds, but that the physician may deem that there is no medical necessity to transfer patient.
[2019-01-12] MEDS: cefTRIAXone 1GM/50ML D5W 50 ML IV SCH (08:44)
[2019-01-12 09:05] LABS: Hepatitis B Surface Antibody Negative
--- NOTE | 2019-01-12 09:34 | NUR ---
Respiratory note: PT HAS CRITICAL VALUES ON ABG RESULTS. CALLED DR. JOHNSON TO TELL HIM AND COULD NOT GET IN TOUCH WITH HIM. WILL KEEP CALLING.
--- NOTE | 2019-01-12 09:45 | NUR ---
FAMILY: Patient's family at bedside. Inquiring about second opinion from neurology and if the secondary physician had made rounds, informed them that the plan for the day is to re-page Dr. Peterson and notify him of request for second opinion.
[2019-01-12] MEDS: MUPIROCIN 2% OINT 15gm or 22gm EACHNOSTRI SCH ×2 (10:00→21:40)
[2019-01-12 10:17] LABS: Hepatitis B Surface Antigen Negative (Negative)
[2019-01-12] MEDS: BUDESONIDE (INHALATION) 0.5 MG/2 ML NEB NEB SCH ×2 (10:25→22:18)
[2019-01-12] MEDS: ASPirin 81 mg TAB PO SCH (10:27)
[2019-01-12] MEDS: CARVEDILOL 12.5 MG TAB PO SCH ×2 (10:28→21:40)
[2019-01-12] MEDS: amLODIPine BESYLATE 5 MG TAB PO SCH (10:29)
[2019-01-12] MEDS: fentaNYL Drip 2500mCg/250mlNS 250 ML IV SCH (10:29)
--- NOTE | 2019-01-12 13:13 | NUR ---
Respiratory note: cRITICAL abg RESULT FROM 923. 2ND ATTEMPT TO CONTACT DR. JOHNSON.
--- NOTE | 2019-01-12 13:31 | NUR ---
Respiratory note: CRITICAL RESULTS FOR ABG GIVEN TO DR. JOHNSON. PER DR. JOHNSON NO MO ABG'S TO BE DRAWN.
--- NOTE | 2019-01-12 13:40 | NUR ---
I spoke with patient's daughter Yoli [phone] regarding her request to have patient transferred to higher level of care for second opinion-requesting [facility]-I explained the transfer process and let her know that it had to start out with an MD order-and that it had to be for something they would do at the other facility that we can't do here-I suggested she speak with attending physician regarding her request.
--- NOTE | 2019-01-12 14:32 | NUR ---
I spoke with patient's sister Berna regarding the plan of care for her brother, I provided her with my contact information if she has any further questions/needs.
--- NOTE | 2019-01-12 16:30 | NUR ---
Report received from Shelbi ACE to assume care.
--- NOTE | 2019-01-12 16:30 | NUR ---
REPORT Report given to Miriam ACE.
--- NOTE | 2019-01-12 16:30 | NUR ---
Opening notes Assumed care, laying on bed, on vent AC mode, size 8, 26 at the lip, AC 20, TV 500, PEEP 5, FiO2 50%, SPO2 50%, sedation with versed @ 3 mg/hr, fentanyl @ 50 mcg/hr, pupils + 4-5, fixed, nonreactive to light, OGT in place, clamped, aranda catheter draining to a dark annel urine. Bed in lowest position with side rails up, bed alarm on. Will continue care.
--- NOTE | 2019-01-12 17:25 | NUR ---
Dr. Pinto at bedside, updated on pt's status, no new orders made.
--- NOTE | 2019-01-12 18:05 | NUR ---
Dr. Schwartz at bedside, updated on pt's status, no new orders made.
--- NOTE | 2019-01-12 18:35 | NUR ---
Dr. Peterson at bedside, updated on pt's status, no new orders given.
--- NOTE | 2019-01-12 18:36 | NUR ---
Received a call from Sabiha (pt's mom), updated on pt's status after password was obtained, verbalized understanding. She wanted to talk to Dr. Peterson but will call Yoli and have Dr. Peterson talk to her since she is the POA.
--- NOTE | 2019-01-12 18:43 | NUR ---
Dr. Peterson spoke with Yoli over the phone and updated her on pt's status and POC.
--- NOTE | 2019-01-12 19:00 | NUR ---
Verbal order received from Dr. Peterson to stop versed drip and increase titration of fentanyl drip. Will carry out an order.
--- NOTE | 2019-01-12 20:38 | NUR ---
Received a call from pt's dtr Yoli inquiring about an update on pt's transfer to [facility]. Will call Dr. Schwartz to verify.
--- NOTE | 2019-01-12 20:39 | NUR ---
Called Dr. Schwartz and relayed Yoli's concern re: pt's transfer to [facility]. Per Dr. Schwartz, may transfer pt to I if ok with Dr. Pacheco and Dr. Peterson
[2019-01-12] MEDS: ATORVASTATIN 20 MG TAB PO SCH (21:39)
[2019-01-13] VITALS (107 sets, daily range): BP systolic 99–160; BP diastolic 41–97
[2019-01-13] MEDS: SODIUM CHLORIDE 0.9% 1,000 ML IV SCH ×2 (02:05→22:00)
[2019-01-13] MEDS: IPRATROPIUM BROM 0.5 MG/2.5ML INH SOL NEB SCH ×6 (03:06→22:00)
[2019-01-13] MEDS: ALBUTEROL SULF 2.5 MG/0.5ML(0.5%) NEB SOLN NEB SCH ×6 (03:06→22:00)
[2019-01-13] MEDS: NOREPINEPHRINE 8 MG/250ML KIT 250 ML IV SCH (03:12)
--- NOTE | 2019-01-13 03:26 | NUR ---
Morning care done, partial linen change done. Repositioned for comfort.
[2019-01-13 04:16] LABS: Hematocrit 51.3 % (41.0-53.0); Hemoglobin 17.1 g/dL (13.5-17.5); Mean Corpuscular Hemoglobin 30.6 pg (28.0-32.0); Mean Corpuscular Hgb Conc. 33.3 g/dL (32.0-36.0); Mean Corpuscular Volume 91.7 fL (80.0-100.0); Platelet Count (auto) 141 10^3/uL (140-450); Red Blood Cells 5.59 10^6/uL (4.5-5.90); Red Cell Distribution Width 14.5 % (11.8-14.3); White Blood Cell 18.5 10^3/uL (4.4-10.8)
[2019-01-13 04:19] LABS: Band Neutrophils % (manual) 0; Basophils % (manual) 0 (0.0-2.0); Blast Cells 0; Eosinophils % (manual) 0 (0-7); Metamyelocytes % 0; Myelocytes % 0; Promyelocytes % 0; Reactive Lymphocytes 0
[2019-01-13 04:31] LABS: Lymphocytes % (manual) 5 (10.0-50.0); Monocytes % (manual) 2 (0-12)
[2019-01-13 04:58] LABS: Albumin 2.5 g/dL (3.4-5.0); Calcium 8.6 mg/dL (8.5-10.1); Potassium 4.3 mmol/L (3.5-5.1)
[2019-01-13 05:03] LABS: BUN/Creatinine Ratio 53.1; Bilirubin, Total 0.6 mg/dL (0.2-1.0)
--- NOTE | 2019-01-13 05:11 | NUR ---
Received a call from [facility] and spoke with Tram, gave updates on pt's status.
[2019-01-13] MEDS: ACCU-CHEK COMFORT CURVE STRIP VI SCH ×3 (06:00→17:56)
[2019-01-13] MEDS: InsuLIN REG 1unit/0.01ml Soln (100units/ml) SC SCH ×3 (06:00→18:00)
[2019-01-13] MEDS: VANCOMYCIN 1,250 MG in D5W 5% 250 ML IV SCH (06:00)
--- NOTE | 2019-01-13 06:00 | NUR ---
temp 100.2, cooling measures done.
[2019-01-13] MEDS: methylPREDNISolone SOD SUCC 125 MG/2 ML VL IV SCH ×3 (06:35→22:02)
[2019-01-13] MEDS: hydrALAZINE HCL 25 MG TAB PO SCH ×3 (06:35→22:03)
--- NOTE | 2019-01-13 07:00 | NUR ---
Temp reassessment 100 deg F. Resting on bed, still on vent and sedation with fentanyl @ 80 mcg/hr.
--- NOTE | 2019-01-13 08:00 | NUR ---
Assessment completed - am care given. assessment completed - see physical assessment flow sheet.
[2019-01-13] MEDS: cefTRIAXone 1GM/50ML D5W 50 ML IV SCH (08:05)
--- NOTE | 2019-01-13 09:08 | NUR ---
Call placed to re: transfer to higher level of care - order. received. Call placed to re: transfer to higher lelvel of care - awaiting return call.
--- NOTE | 2019-01-13 09:33 | NUR ---
Transfer request faxed to [facility].
--- NOTE | 2019-01-13 10:20 | NUR ---
Boiler Mechanic spoke to patient's mother Sabiha - updated her on patient's condition and status of transfer to higher level of care - verbalizes understanding and all questions answered.
[2019-01-13] MEDS: fentaNYL Drip 2500mCg/250mlNS 250 ML IV SCH ×2 (10:23→21:22)
--- NOTE | 2019-01-13 10:35 | NUR ---
Dr Romano phones - given ABG results - no new orders received.
[2019-01-13] MEDS: BUDESONIDE (INHALATION) 0.5 MG/2 ML NEB NEB SCH ×2 (10:41→22:00)
--- NOTE | 2019-01-13 10:45 | NUR ---
Call placed to re: placement of central venous line - awaiting call back.
[2019-01-13] MEDS: amLODIPine BESYLATE 5 MG TAB PO SCH (11:07)
[2019-01-13] MEDS: CARVEDILOL 12.5 MG TAB PO SCH ×2 (11:08→22:03)
[2019-01-13] MEDS: ASPirin 81 mg TAB PO SCH (11:08)
[2019-01-13] MEDS: MUPIROCIN 2% OINT 15gm or 22gm EACHNOSTRI SCH ×2 (11:09→22:04)
--- NOTE | 2019-01-13 11:10 | NUR ---
Writing Center Director phoned patient's daughter Yoli cerda updated her on patient condition and status of transfer to higher level of care - verbalized understanding, all questions answered.
--- NOTE | 2019-01-13 12:04 | NUR ---
I spoke with patient's mom Sabiha regarding the status of the transfer request-I let her know that first we would have to have an accepting physician at [facility]-I told her that I would give her an update in a few hours.
[2019-01-13] MEDS: VANCOMYCIN 1GM/250ML 250 ML IV SCH ×2 (14:34→22:01)
--- NOTE | 2019-01-13 14:54 | NUR ---
Nutrition Follow-up Notes Wt.: 70.6 kg as of 01/07/19 Pt's in isolation, remains intubated, sedated, no immediate family member bedside during rounds this morning. Pt remains NPO, no order for alternate nutrition support yet at this time, per nursing. Noted pt's for transfer to higher level of care. Est. Needs: 1750 kcal to 2100 kcal (25-30 kcal/kgBW), 71 gms to 85 gms pro (1.0-1.2 gms/kgBW). Will continue to monitor pertinent labs and reassess nutrient need prn Labs: Gluc 155 H, Na 149 H, Cl 110 H, CO2 35 H, BUN 34 H, Cr 0.64 L, ASY 69 H, ALT 62 H, Tpro 6.0 L, Alb 2.5 L. Skin: Justice scale 11, high risk, skin intact per gearcase assembler. GI: Pt's no bowel activity since 01/07/19 per gearcase assembler. PES: Increased nutrient needs r.t current chronic medical condition aeb intubated, sedated, mild hypoalbuminemia, NPO. Altered nutrition related lab values r/t current/chronic medical condition aeb hyperglycemia, hyperchloremia, elev. BUN, Trop I, LFTs and mild hypoalbuminemia Will continue to monitor NPO status, skin status, pertinent labs and weight trend. F/u in 2 to 3 days. Rec.: 1.) If still NPO, consider alternate nutrition/EN support with formula choice of Jevity 1.2 Gilles @ 65 ml/hr goal rate as tolerated if medically appropriate. 2.) If Albumin continues trending down, consider Prostat 1 pkt BID. 3.) Consider to continue monitoring/recording of pt's actual BW based on bed scale. 4.) Refer to RD for further nutrition educ. and weight monitoring upon discharge. 5.) Continue current plan of care.
--- NOTE | 2019-01-13 15:25 | NUR ---
I called [facility] transfer center [phone] and left message asking for update on the transfer request-awaiting return call.
--- NOTE | 2019-01-13 16:26 | NUR ---
I called [facility] transfer center [phone] and spoke with Janae, she said they are declining the transfer at this time because it is not for a higher level of care-there is nothing different they would do for the patient there than we are doing here. I called Nurse Shirley and made her aware. I called patient's daughter Yoli to make her aware-I provided her with the phone number/contact center agent at [facility]-I also faxed transfer request to [facility] per her request.
--- NOTE | 2019-01-13 17:00 | NUR ---
DR SAVAGE VISITS ET EXAMINES PATIENT - ORDERS RECEIVED.
--- NOTE | 2019-01-13 17:15 | NUR ---
DR AMAYA VISIT ET EXAMINES PATIENT - ORDERS RECEIVED AND DISCHARGE PAPERWORK SIGNED PER MD.
--- NOTE | 2019-01-13 18:10 | NUR ---
DR GALO VISITS ET EXAMINES PATIENT - DOES CALORIC VESTIBULAR TEST AT BEDSIDE - NO NYSTAGMUS NOTED.
--- NOTE | 2019-01-13 18:15 | NUR ---
PLACED PT ON 100% AT THIS TIME FOR PREOXYGENATION. DR GALO WOULD LIKE AN APNEA TEST DONE IN 10 MINUTES.
--- NOTE | 2019-01-13 18:25 | NUR ---
Respiratory note: DB GUERRA, DR. GALO AND I WILL REMAIN AT BEDSIDE FOR OBSERVATION. APNEA TEST STARTED AT THIS TIME. BASELINE VITALS AT THIS TIME ARE HR 98-101 , POX 100% ON 100% FIO2. BP 138/88.
--- NOTE | 2019-01-13 18:32 | NUR ---
APNEA TEST ENDED AT THIS TIME PER DR GALO. DB BRAND. ABG OBTAINED AT THIS TIME ON RRA ON FIRST ATTEMPT. Addendum: 01/13/19 at 2039 by Daily Perez, RT PLACED PT BACK ON AC MODE AT THIS TIME. AC, R20, VT500, +5, 50%
--- NOTE | 2019-01-13 18:39 | NUR ---
Respiratory note: ABG RESULTS COMMUNICATED TO DR. GALO.
--- NOTE | 2019-01-13 18:54 | NUR ---
Respiratory note: RECEIVED PT ON VENT V3, VENT CONNECTED TO RED OUTLET AND O2 SOURCE. ALARMS ARE SET AND AUDIBLE. AMBU BAG AND MASK AT BEDSIDE. BS ARE COURSE. T/O, SXD FOR THICK CREAMY GREEN/ BLOOD TINGE. MED NEB TX GIVEN INLINE WITHOUT ADVERSE REACTION NOTED. RT NAME AND PAGER ASSIGNMENT WRITTEN ON PTS ROOM BOARD WILL CONTINUE TO MONITOR.
--- NOTE | 2019-01-13 21:00 | NUR ---
OGT ADVANCED FROM 50 CM TO 60 CM, PATENCY CHECKED BY AUSCULTATION OF INSTILLED AIR THRU ASEPTO SYRINGE AND ASPIRATION OF GASTRIC CONTENTS.
--- NOTE | 2019-01-13 22:00 | NUR ---
Respiratory note: AT BEDSIDE FOR ROUTINE VENT CHECK. NO VENT CHANGES MADE AT THIS TIME. SXD VIA ETT FOR THICK FISH. WILL CONTINUE TO MONITOR Q2H. MED NEB TX GIVEN INLINE WITHOUT ADVERSE REACTION NOTED.
[2019-01-13] MEDS: ATORVASTATIN 20 MG TAB PO SCH (22:02)
[2019-01-13] MEDS: PANTOPRAZOLE 40 MG/10 ML VIAL INJ IV SCH (22:02)
--- NOTE | 2019-01-13 22:59 | NUR ---
[facility] RECEIVED A CALL FROM [facility] AND SPOKE WITH LARRY, UPDATED ON PT'S STATUS AND REASON FOR REFERRAL. HE SAID HE WILL JUST INFORM THE RFP WRITER IN THE MORNING AND THERE'S NOTHING THAT CAN BE DONE TONIGHT IF IT'S NOT URGENT AND IF IT'S FAMILY'S REQUEST THE PT WILL BE BUMP DOWN TO THE BOTTOM OF THE WAITING LIST.
--- NOTE | 2019-01-13 23:58 | NUR ---
Respiratory note: AT BEDSIDE FOR ROUTINE VENT CHECK NO CHANGES MADE AT THIS TIME. WILL CONTINUE TO MONITOR Q2H.
[2019-01-14] VITALS (95 sets, daily range): BP systolic 95–164; BP diastolic 51–94
[2019-01-14] MEDS: ACCU-CHEK COMFORT CURVE STRIP VI SCH ×4 (00:07→18:38)
[2019-01-14] MEDS: IPRATROPIUM BROM 0.5 MG/2.5ML INH SOL NEB SCH ×6 (02:06→22:15)
[2019-01-14] MEDS: ALBUTEROL SULF 2.5 MG/0.5ML(0.5%) NEB SOLN NEB SCH ×6 (02:06→22:15)
--- NOTE | 2019-01-14 02:06 | NUR ---
Respiratory note: ROUTINE VENT CHECK NO CHANGES MADE AT THIS TIME. MED NEB TX GIVEN INLINE WITHOUT ADVERSE REACTION NOTED. SXD VIA ETT FOR SMALL THICK FISH/GREEN. WILL CONTINUE TO MONITOR Q2H.
--- NOTE | 2019-01-14 02:15 | NUR ---
RECEIVED A CALL FROM [facility] AND SPOKE WITH FERNY, UPDATES GIVEN ON PT'S STATUS.
[2019-01-14] MEDS: NOREPINEPHRINE 8 MG/250ML KIT 250 ML IV SCH (03:12)
[2019-01-14] MEDS: MIDAZOLAM DRIP 50 mg/50mL 50 ML IV SCH (03:12)
--- NOTE | 2019-01-14 04:30 | NUR ---
MORNING CARE DONE, COMPLETE LINENS CHANGED. REPOSITIONED FOR COMFORT.
--- NOTE | 2019-01-14 04:37 | NUR ---
Respiratory note: AT BEDSIDE FOR END OF SHIFT VENT CHECK. SX CATHETER CHANGED AT THIS TIME. WILL HAVE DAY SHIFT RT CONTINUE POC.
[2019-01-14] MEDS: VANCOMYCIN 1GM/250ML 250 ML IV SCH (05:25)
[2019-01-14] MEDS: methylPREDNISolone SOD SUCC 125 MG/2 ML VL IV SCH ×3 (05:25→21:42)
[2019-01-14] MEDS: hydrALAZINE HCL 25 MG TAB PO SCH ×3 (05:26→21:43)
[2019-01-14] MEDS: SODIUM CHLORIDE 0.9% 1,000 ML IV SCH (05:33)
[2019-01-14] MEDS: InsuLIN REG 1unit/0.01ml Soln (100units/ml) SC SCH ×4 (05:47→18:56)
[2019-01-14 07:59] LABS: Basophils # (auto) 0 uL; Basophils % (auto) 0.1 % (0.0-2.0); Eosinophils # (auto) 0 uL; Hematocrit 50.8 % (41.0-53.0); Hemoglobin 16.2 g/dL (13.5-17.5); Lymphocytes # (auto) 0.4 uL; Lymphocytes % (auto) 2.3 % (10.0-50.0); Mean Corpuscular Hemoglobin 30.1 pg (28.0-32.0); Mean Corpuscular Volume 94.1 fL (80.0-100.0); Monocytes # (auto) 1.1 uL; Monocytes % (auto) 6.7 % (0.0-12.0); Neutrophils # (auto) 15.3 uL; Neutrophils % (auto) 90.9 % (37.0-80.0); Nucleated Red Blood Cells % 0.1 %; Platelet Count (auto) 137 10^3/uL (140-450); Red Cell Distribution Width 14.9 % (11.8-14.3); White Blood Cell 16.9 10^3/uL (4.4-10.8)
[2019-01-14] MEDS: MUPIROCIN 2% OINT 15gm or 22gm EACHNOSTRI SCH ×2 (08:04→21:44)
[2019-01-14] MEDS: cefTRIAXone 1GM/50ML D5W 50 ML IV SCH (08:05)
--- NOTE | 2019-01-14 08:30 | NUR ---
CAIR PAD UNDER PATIENT SATURATED WITH URINE - LINENS CHANGED - WILL CONTINUE TO MONITOR.
[2019-01-14] MEDS: PANTOPRAZOLE 40 MG/10 ML VIAL INJ IV SCH (08:33)
[2019-01-14] MEDS: amLODIPine BESYLATE 5 MG TAB PO SCH (08:47)
[2019-01-14] MEDS: ASPirin 81 mg TAB PO SCH (08:47)
[2019-01-14] MEDS: CARVEDILOL 12.5 MG TAB PO SCH ×2 (08:48→21:44)
--- NOTE | 2019-01-14 10:00 | NUR ---
RECEIVED CALL FROM LAURA AND MAEVE - BOTH UPDATED ON PATIENT CONDITION. LAURA REQUESTS FOR PATIENT TRANSFER REQUESTS BE FOR [facility], [facility] AND [facility]. CALL PLACED TO TRANSPORT TANK TECHNICIAN - SHERI INFORMED OF ABOVE - STATES WILL OBTAIN CONTACT INFORMATION FOR REQUESTED HOSPITALS FOR RESPITE PROVIDER.
[2019-01-14] MEDS: BUDESONIDE (INHALATION) 0.5 MG/2 ML NEB NEB SCH ×2 (10:22→19:43)
[2019-01-14 10:55] LABS: Calcium 8.4 mg/dL (8.5-10.1); Potassium 4.2 mmol/L (3.5-5.1)
--- NOTE | 2019-01-14 11:00 | NUR ---
DR ETIENNE VISITS AND EXAMINES PATIENT - ORDERS RECEIVED. REQUESTS FAMILY MEETING WITH PATIENT'S FAMILY AND EITHER DR GALO OR DR SAVAGE. BOTH DRS PAGED - DR GALO RETURNS CALL - STATES HE CAN MEET WITH PATIENT'S FAMILY AND DR ETIENNE WEDNESDAY AT 0800 - DR ETIENNE AGREEABLE. SPOKE TO JAN FROM INSTANTIZER OPERATOR - STATES CHOICES OF HOSPITALS TO TRANSFER TO IS LIMITED TO CONTRACT HOSPITALS WHICH ARE [facility], [facility] AND [facility]. CALL PLACED TO PATIENT'S DAUGHTER LAURA RE: ABOVE - MESSAGE LEFT.
--- NOTE | 2019-01-14 11:45 | NUR ---
RECEIVED CALL FROM RABIA AT [facility] -STATES THEY ARE UNABLE TO ACCEPT PATIENTS FROM OTHER HOSPITALS PER FAMILY REQUEST AT THE PRESENT TIME.
--- NOTE | 2019-01-14 12:00 | NUR ---
GOLDENR PAD UNDER PATIENT AGAIN SATURATED WITH URINE - - ONLY SM AMT URINE IN DRUMMOND BAG - CALL PLACED TO DR ETIENNE.
[2019-01-14] MEDS: D5W/LACTATED RINGERS 1,000 ML IV SCH (12:15)
--- NOTE | 2019-01-14 12:15 | NUR ---
DR ETIENNE RETURNS CALL - ORDERS RECEIVED.
--- NOTE | 2019-01-14 12:25 | NUR ---
UNABLE TO IRRIGATE DRUMMOND CATHETER - REMOVED PER MARKETING ADMIN.. #16 ICELANDIC DRUMMOND CATHETER INSERTED WITH DIFFICULTY - 1300 ML CLOUDY JOHNSON RED/ DK JOHANNA URINE WITH MUCH SEDIMENT OBTAINED. PATIENT EVELIO PROCEDURE WELL - MOD DIFFICULTY OF CATHETER INSERTION ENCOUNTERED.
[2019-01-14] MEDS: FREE WATER GT SCH ×3 (12:30→21:44)
--- NOTE | 2019-01-14 13:35 | NUR ---
CALL PLACED TO TRANSFER CENTER TO GIVE MEDICAL INFO - SHANNON TO RETURN CALL.INSOLE TOE SNIPPING MACHINE OPERATOR PHONED PATIENT'S MOTHER STEPH TO FACILITATE CALL TO LAURA. RECEIVED CALL BACK FROM LAURA - NOTIFIED OF REQUEST FROM DR ETIENNE TO MEET WITH PATIENT'S FAMILY WITH DR GALO ON WEDNESDAY AM AT 0800 - AGREEABLE. ALSO NOTIFIED DAUGHTER OF CONTRACTED HOSPITALS AND PENDING REFERRALS TO THEM - VERBALIZED UNDERSTANDING.
--- NOTE | 2019-01-14 14:00 | NUR ---
WOUND CARE NOTE: PATIENT CONTINUES TO BE INTUBATED, SEDATED, WOUND FREE AT THIS TIME. CURRENT BOB SCORE IS 11. SKIN/WOUND CARE PLAN UPDATED. RECOMMEND: CONTINUATION WITH ALL WOUND CARE ORDERS PREVIOUSLY PRESCRIBED BY MD. WOUND CARE TEAM WILL CONTINUE TO MONITOR.
--- NOTE | 2019-01-14 16:26 | NUR ---
SPOKE TO HAWA AT TRANSFER CENTER - GAVE REPORT ON PATIENT.
--- NOTE | 2019-01-14 16:35 | NUR ---
CALL PLACED TO SW TO UPDATE ON PROGRESS OF TRANSFER.
--- NOTE | 2019-01-14 16:39 | NUR ---
SPOKE AGAIN TO HAWA AT TRANSFER CENTER - RECEIVED LIST OF NEEDED DOCUMENTS FOR INTENSIVISTS TO EVALUATE.
--- NOTE | 2019-01-14 17:07 | NUR ---
PLACED CALL TO PATIENT'S DAUGHTER LAURA RE: TRANSFER TO HIGHER LEVEL OF CARE - INFORMED HER THAT [facility] MAY NOT GET DEFINITIVE ANSWER FROM FACILITIES RE: ACCEPTANCE OF PATIENT TODAY, THAT IT MAY BE TOMORROW - VERBALIZED UNDERSTANDING.
--- NOTE | 2019-01-14 17:20 | NUR ---
SPOKE TO HAWA AT TRANSFER CENTER - STATES SHE IS COLLECTING INFORMATION FOR [facility]. WELDING SPECIALIST PLACED TRANSFER REQUEST TO THIS HOSPITAL ON HOLD PENDING DISCUSSION WITH PACO. PLACED ANOTHER CALL TO PACO RE: PACO REQUEST TO FAX INFO TO TRANSFER CENTER - [facility] DOES NOT HAVE CONTRACT WITH PATIENT'S INSURANCE CO. PER JAN ANTONIO.
--- NOTE | 2019-01-14 19:45 | NUR ---
RT NOTE RECEIVED PT INTUBATED AND ON VENT V3 ON STATED SETTINGS. VENT IS PLUGGED TO RED OUTLET. ALARMS ARE ON AND AUDIBLE AT NURSES STATION. AMBU BAG AT BEDSIDE AND CONNECTED TO O2 SOURCE. 8.0 ETT IS SECURED AT 24 TO THE ORAL RIGHT WITH ANCHORFAST. BILATERAL BS ARE CLEAR/DIMINISHED. PT WAS SUCTIONED FOR SMALL RETURN. HHN GIVEN INLINE WITH 2.5 MG ALBUTEROL AND 0.5 MG ATROVENT WITHOUT ADVERSE REACTION NOTED. PT IS ON HEATED WIRE CIRCUIT WITH CIRCUIT TEMP 35.9. CONT ORDERED. POX 95% Addendum: 01/14/19 at 2114 by Naima Chang RT Amended: Links added.
--- NOTE | 2019-01-14 20:00 | NUR ---
ADMITTED ON 01/07/2019 AFTER BEING SHORT OF BREATH AT HOME AND COLLAPSING AFTER A RESPIRATORY TREATMENT. CARDIAC ARREST. INTUBATED AND BROUGHT TO ICU. CONTACT ISOLATION WITH MRSA NARES. COMPLETE FACE IS RED. NA 152. RECEIVING Q 4 HOUR 250CC OF WATER PER NG. OGT OTHERWISE AT LIS. SECRETIONS FROM THE OGT ARE A VERY LIGHT GREEN. ORALLY INTUBATED. AC OF 20 , BREATHING 20. CALORIC TEST AND APNEA TEST DONE. PLAN: MEETING WITH THE FAMILY AND DR BEST ON WEDNESDAY AT 0800. TRANSFER REQUEST IN. SOCIAL WORK INVOLVED. PUPILS UNEQUAL AND FIXED. LUNGS CLEAR. SUCTIONED A LARGE AMOUNT OF CLEAR ORAL SECRETIONS. SMALL AMOUNT OF CLEAR SECRETIONS FROM THE ETT. ABDOMEN SOFT AND SLIGHTLY ROUND. NO BOWEL SOUNDS. EDEMA IN ARMS AND LEGS. SCDS ON. NO SKIN BREAKDOWN. BACTROBAN TO BOTH NARES. DRUMMOND IN PLACE AND DRAINING A LARGE AMOUNT OF JOHANNA LIQUID.
--- NOTE | 2019-01-14 20:15 | NUR ---
RT NOTE ROUTINE VENT CHECK DONE. PT INTUBATED AND ON VENT V3 ON STATED SETTINGS. VENT IS PLUGGED TO RED OUTLET. ALARMS ARE ON AND AUDIBLE AT NURSES STATION. AMBU BAG AT BEDSIDE AND CONNECTED TO O2 SOURCE. 8.0 ETT IS SECURED AT 24 TO THE ORAL RIGHT WITH ANCHORFAST. PT IS ON HEATED WIRE CIRCUIT WITH CIRCUIT TEMP 36.0. CONT ORDERED. POX 95% Addendum: 01/14/19 at 2114 by Naima Chang RT Amended: Links added.
[2019-01-14] MEDS: ATORVASTATIN 20 MG TAB PO SCH (21:43)
--- NOTE | 2019-01-14 22:00 | NUR ---
REPOSITIONED TO BACK. SUCTIONED THE ETT AND ORAL CAVITY. LUNGS CLEAR. ABDOMEN SOFT. PITTING EDEMA IN ARMS AND LEGS. 3 PERIPHERAL IVS ALL SHOW NO REDNESS, SWELLING OR DRNG. NO BLINK, GAG OR COUGH. PUPILS REMAIN UNEQUAL AND FIXED.
--- NOTE | 2019-01-14 22:15 | NUR ---
RT NOTE ROUTINE VENT CHECK DONE. PT INTUBATED AND ON VENT V3 ON STATED SETTINGS. VENT IS PLUGGED TO RED OUTLET. ALARMS ARE ON AND AUDIBLE AT NURSES STATION. AMBU BAG AT BEDSIDE AND CONNECTED TO O2 SOURCE. 8.0 ETT IS SECURED AT 24 TO THE ORAL RIGHT WITH ANCHORFAST. PT IS ON HEATED WIRE CIRCUIT WITH CIRCUIT TEMP 36.1. HHN GIVEN INLINE WITH 2.5 MG ALBUTEROL AND 0.5 MG ATROVENT WITHOUT ADVERSE REACTION NOTED. PT WAS SUCTIONED FOR SCANT RETURN. CONT ORDERED. PT TEMP 99.9, POX 95% Addendum: 01/14/19 at 2221 by Naima Chang RT Amended: Links added.
[2019-01-14] MEDS: LABETALOL HCL 5 MG/ML ML 20ML VIAL IV PRN (22:57)
--- NOTE | 2019-01-14 23:02 | NUR ---
LABETOLOL FOR SBP 154
[2019-01-15] VITALS (103 sets, daily range): BP systolic 103–193; BP diastolic 51–112
--- NOTE | 2019-01-15 | NUR ---
FENTANYL DOWN TO 10 MCG. HE STARTED BREATHING 23-24 AND STARTED BREATHING HIS OWN PATTERN. AND HE STARTED SHIVERING. INCREASED THE FENTANYL TO 40 MCG AND HE STOPPED. NSR WITHOUT ECTOPY. SBP DOWN AFTER LABETOLOL. LUNGS CLEAR. VERY LITTLE SUCTIONED FROM THE ETT. ORAL NGT TO LIS. ABDOMEN SOFT. GENERALIZED PITTING EDEMA. HAVE NOT HEARD FROM ANY OF THE HOSPITALS WE HAVE FAXED. URINE OUTPUT 700CC FOR 5 HOURS.
[2019-01-15] MEDS: ACCU-CHEK COMFORT CURVE STRIP VI SCH ×4 (00:21→18:00)
[2019-01-15] MEDS: InsuLIN REG 1unit/0.01ml Soln (100units/ml) SC SCH ×4 (00:21→18:00)
[2019-01-15] MEDS: D5W/LACTATED RINGERS 1,000 ML IV SCH (00:46)
--- NOTE | 2019-01-15 00:58 | NUR ---
RT NOTE ROUTINE VENT CHECK DONE. PT INTUBATED AND ON VENT V3 ON STATED SETTINGS. VENT IS PLUGGED TO RED OUTLET. ALARMS ARE ON AND AUDIBLE AT NURSES STATION. AMBU BAG AT BEDSIDE AND CONNECTED TO O2 SOURCE. 8.0 ETT IS SECURED AT 24 TO THE ORAL RIGHT WITH ANCHORFAST. PT IS ON HEATED WIRE CIRCUIT WITH CIRCUIT TEMP 35.9. CONT ORDERED. PT TEMP 100.0, POX 96% Addendum: 01/15/19 at 0142 by Naima Chang RT Amended: Links added.
[2019-01-15] MEDS: FREE WATER GT SCH ×6 (02:00→21:42)
--- NOTE | 2019-01-15 02:27 | NUR ---
RT NOTE ROUTINE VENT CHECK DONE. PT INTUBATED AND ON VENT V3 ON STATED SETTINGS. VENT IS PLUGGED TO RED OUTLET. ALARMS ARE ON AND AUDIBLE AT NURSES STATION. AMBU BAG AT BEDSIDE AND CONNECTED TO O2 SOURCE. 8.0 ETT IS SECURED AT 24 TO THE ORAL RIGHT WITH ANCHORFAST. PT IS ON HEATED WIRE CIRCUIT WITH CIRCUIT TEMP 35.8. INLINE SUCTION CHANGED WITHOUT INCIDENT. HHN GIVEN INLINE WITH 2.5 MG ALBUTEROL AND 0.5 MG ATROVENT WITHOUT ADVERSE REACTION NOTED. DB JACKSON AT BEDSIDE AND JUST SUCTIONED PT FOR MODERATE RETURN. CONT ORDERED. PT TEMP 100.0, POX 98% Addendum: 01/15/19 at 0335 by Naima Chang RT Amended: Links added.
[2019-01-15] MEDS: ALBUTEROL SULF 2.5 MG/0.5ML(0.5%) NEB SOLN NEB SCH ×6 (02:29→21:51)
[2019-01-15] MEDS: IPRATROPIUM BROM 0.5 MG/2.5ML INH SOL NEB SCH ×6 (02:29→21:51)
[2019-01-15] MEDS: NOREPINEPHRINE 8 MG/250ML KIT 250 ML IV SCH (03:12)
[2019-01-15] MEDS: MIDAZOLAM DRIP 50 mg/50mL 50 ML IV SCH (03:12)
--- NOTE | 2019-01-15 04:10 | NUR ---
RT NOTE ROUTINE VENT CHECK DONE. PT INTUBATED AND ON VENT V3 ON STATED SETTINGS. VENT IS PLUGGED TO RED OUTLET. ALARMS ARE ON AND AUDIBLE AT NURSES STATION. AMBU BAG AT BEDSIDE AND CONNECTED TO O2 SOURCE. 8.0 ETT IS SECURED AT 24 TO THE ORAL RIGHT WITH ANCHORFAST. PT IS ON HEATED WIRE CIRCUIT WITH CIRCUIT TEMP 36.3. CONT ORDERED. PT TEMP 100.0, POX 98% Addendum: 01/15/19 at 0446 by Naima Chang RT Amended: Links added.
[2019-01-15 05:33] LABS: Potassium 4.4 mmol/L (3.5-5.1)
[2019-01-15 05:46] LABS: BUN/Creatinine Ratio 57.8
--- NOTE | 2019-01-15 06:00 | NUR ---
REPOSITIONED TO BACK FOR CXR. NSR WITHOUT ECTOPY. LUNGS CLEAR.
[2019-01-15] MEDS: hydrALAZINE HCL 25 MG TAB PO SCH ×3 (06:26→21:43)
[2019-01-15] MEDS: methylPREDNISolone SOD SUCC 125 MG/2 ML VL IV SCH ×3 (06:44→21:42)
--- NOTE | 2019-01-15 07:10 | NUR ---
REPORT RECEIVED FROM SKID STRAPPER NURSE. PATIENT RESTING IN BED AT THIS TIME, INTUBATED AND SEDATED. RESPIRATIONS EVEN AND UNLABORED. NO SIGNS OF ACUTE DISTRESS NOTED. BED IN LOW POSITION. WILL CONTINUE TO MONITOR.
[2019-01-15] MEDS: cefTRIAXone 1GM/50ML D5W 50 ML IV SCH (09:17)
[2019-01-15] MEDS: PANTOPRAZOLE 40 MG/10 ML VIAL INJ IV SCH (09:18)
[2019-01-15] MEDS: ASPirin 81 mg TAB PO SCH (09:19)
[2019-01-15] MEDS: CARVEDILOL 12.5 MG TAB PO SCH ×2 (09:19→21:43)
[2019-01-15] MEDS: amLODIPine BESYLATE 5 MG TAB PO SCH (09:19)
[2019-01-15] MEDS: BUDESONIDE (INHALATION) 0.5 MG/2 ML NEB NEB SCH ×2 (10:23→21:51)
[2019-01-15] MEDS: fentaNYL Drip 2500mCg/250mlNS 250 ML IV SCH (10:23)
--- NOTE | 2019-01-15 10:24 | NUR ---
VENT SETTINGS CHANGED TO AC RR 16, VT500, PEEP5, 50% FIO2 PER DR SAVAGE ORDERS.
[2019-01-15] MEDS ORDERED: VANCOMYCIN 1,250 MG in D5W 5% 250 ML IV SCH (12:00)
--- NOTE | 2019-01-15 12:06 | NUR ---
[facility] CALLED FOR UPDATE ON PATIENT.
--- NOTE | 2019-01-15 13:02 | NUR ---
[facility] CALLED FOR UPDATE ON PATIENT STATUS.
--- NOTE | 2019-01-15 13:58 | NUR ---
Midline Placement: Patient educated on need for midline placement. All risks and benefits explained and all questions and concerns addresses prior to procedure. 18g/10cm midline inserted via left basilic vein using Ultrasound. Sterile technique utilized. Blood return obtained from the lumen and flushed easily with NS using proper technique. Midline secured with saline lock; biodisc and occlusive dressing applied. Primary RN notified.
--- NOTE | 2019-01-15 13:58 | NUR ---
PICC LINE NURSE AT BEDSIDE TO PLACE MIDLINE. MIDLINE PLACED TO LEFT UPPER ARM.
--- NOTE | 2019-01-15 14:30 | NUR ---
DR BEST AT BEDSIDE TO ASSESS PATIENT AND DISCUSS PLAN OF CARE. PER MD SWITCH FLUIDS TO D5W @ 100ML/HR. MD SPOKE TO MD AT [facility] WHO IS ACCEPTING PATIENT, BUT NO BED AVAILABLE AT THIS TIME. ALL ORDERS NOTED IN CHART.
[2019-01-15] MEDS: VANCOMYCIN 1,250 MG in D5W 5% 250 ML IV SCH (14:41)
[2019-01-15] MEDS: D5W 5% 1,000 ML IV SCH (15:00)
[2019-01-15] MEDS ORDERED: D5W/SOD CHLO 0.9% 1,000 ML IV SCH (15:00)
--- NOTE | 2019-01-15 15:20 | NUR ---
SPOKE TO TRANSFER CENTER FROM [facility]. PATIENT HAS BEEN ACCEPTED BY DR. DERRICK CASPER. AT THIS TIME THERE IS NO BED AVAILABLE.
--- NOTE | 2019-01-15 20:00 | NUR ---
ADMITTED FROM HOME. HE WAS TAKING A RESPIRATORY TREATMENT AND COLLAPSED. INTUBATED AND BROUGHT TO ICU. PUPILS ARE UNEQUAL AND FIXED. THE RIGHT IS AN EIGHT AND THE LEFT IS A 7. NO BLINK. HYPOACTIVE GAG. ORAL ETT TO VENTILATOR. ORAL NGT TO LIS. NGT SECRETIONS ARE DARK GREEN. FEW CLEAR ORAL SECRETIONS. BLOODY SECRETIONS SUCTIONED FROM THE ETT. LUNGS COARSE BILATERALLY. ABDOMEN SOFT AND SLIGHTLY ROUND. HYPOACTIVE BOWEL SOUNDS. DRUMMOND IN PLACE. NEW FROM YESTERDAY. URINE IS A CLEAR JOHANNA WITH SOME SEDIMENT IN THE BOTTOM OF THE BAG. 2+ PITTING EDEMA IN HIS ARMS AND LEGS. SCDS ON. HAS ONE PERIPHERAL IV AND A NEW MIDLINE FROM TODAY. NOT MOVING ANY OF HIS EXTREMITIES TO PAINFUL STIMULI. ALL PULSES ARE PALPABLE. GETTING FREE WATER Q FOUR HOURS FOR A HIGH NA LEVEL.
[2019-01-15] MEDS: ATORVASTATIN 20 MG TAB PO SCH (21:43)
--- NOTE | 2019-01-15 22:00 | NUR ---
SINUS RHYTHM WITHOUT ECTOPY. SBP WITHIN RANGE. OCCASIONAL BURSTS OF HTN THAT RESOLVE WITHIN 15 MINUTES. IT'S OFTEN BROUGHT ON BY COUGHING OR MOVING. ADEQUATE URINE OUTPUT. REPOSITIONED TO BACK.
[2019-01-16] VITALS (78 sets, daily range): BP systolic 82–201; BP diastolic 44–123
--- NOTE | 2019-01-16 | NUR ---
PUPILS LARGE, UNEQUAL AND FIXED. NO MOVEMENT OF EXTREMITIES TO PAINFUL STIMULI. TEMP 97.8. COVERED WITH SHEET AND BLANKET.
[2019-01-16] MEDS: ACCU-CHEK COMFORT CURVE STRIP VI SCH ×4 (00:11→17:57)
[2019-01-16] MEDS: InsuLIN REG 1unit/0.01ml Soln (100units/ml) SC SCH ×4 (00:11→18:13)
[2019-01-16] MEDS: D5W 5% 1,000 ML IV SCH ×3 (01:00→21:09)
[2019-01-16] MEDS: FREE WATER GT SCH ×6 (02:00→22:28)
--- NOTE | 2019-01-16 02:00 | NUR ---
CHG BATH . COMPLETE LINEN CHANGE.HEELS OFF BED. SCD ON
[2019-01-16] MEDS: ALBUTEROL SULF 2.5 MG/0.5ML(0.5%) NEB SOLN NEB SCH ×6 (02:05→21:45)
[2019-01-16] MEDS: IPRATROPIUM BROM 0.5 MG/2.5ML INH SOL NEB SCH ×6 (02:05→21:45)
[2019-01-16] MEDS: fentaNYL Drip 2500mCg/250mlNS 250 ML IV SCH (03:00)
[2019-01-16 04:54] LABS: Calcium 8.3 mg/dL (8.5-10.1); Potassium 3.8 mmol/L (3.5-5.1)
[2019-01-16 04:58] LABS: BUN/Creatinine Ratio 37.5
[2019-01-16] MEDS: methylPREDNISolone SOD SUCC 125 MG/2 ML VL IV SCH (06:11)
[2019-01-16] MEDS: hydrALAZINE HCL 25 MG TAB PO SCH ×3 (06:11→22:28)
--- NOTE | 2019-01-16 06:55 | NUR ---
REPOSITIONED. ORAL CARE.
[2019-01-16] MEDS: MIDAZOLAM DRIP 50 mg/50mL 50 ML IV SCH (07:30)
[2019-01-16] MEDS: NOREPINEPHRINE 8 MG/250ML KIT 250 ML IV SCH ×2 (07:30→17:30)
--- NOTE | 2019-01-16 08:15 | NUR ---
Kosher Inspector and met with patient's family - discussed current patient condition, prognosis and treatment options. All questions answered to satisfaction of all family members present. Patient's daughter Crystal tearful - support offered.
[2019-01-16 08:17] LABS: Basophils # (auto) 0.1 uL; Basophils % (auto) 0.3 % (0.0-2.0); Eosinophils # (auto) 0 uL; Hematocrit 46.7 % (41.0-53.0); Hemoglobin 15.8 g/dL (13.5-17.5); Lymphocytes # (auto) 0.3 uL; Lymphocytes % (auto) 1.1 % (10.0-50.0); Mean Corpuscular Hemoglobin 31.1 pg (28.0-32.0); Mean Corpuscular Hgb Conc. 33.9 g/dL (32.0-36.0); Mean Corpuscular Volume 91.8 fL (80.0-100.0); Monocytes # (auto) 0.9 uL; Monocytes % (auto) 3.4 % (0.0-12.0); Neutrophils % (auto) 95.2 % (37.0-80.0); Platelet Count (auto) 110 10^3/uL (140-450); Red Blood Cells 5.09 10^6/uL (4.5-5.90); White Blood Cell 25.2 10^3/uL (4.4-10.8)
--- NOTE | 2019-01-16 08:40 | NUR ---
AMINTA from transfer center phoned - states that bed is available, room number, nursing report number given, states [facility] on Will Call but does not know about payor source for transport. Manager Tax spoke to Anna in to check on payor source.
--- NOTE | 2019-01-16 08:50 | NUR ---
Social Professionals informed patient's family that CM is checking on approval from [facility] for transport to [facility]- verbalized understanding. Family members at bedside.
--- NOTE | 2019-01-16 09:02 | NUR ---
I called [facility] Registered Safety Engineer Anna [phone] and left message asking for authorization for transfer as well as for transportation-awaiting return call.
--- NOTE | 2019-01-16 09:50 | NUR ---
AMINTA phoned - requesting update - informed [facility] is waiting for approval from [facility] re:transport payment. Expressive Art Therapist informed patient's family of bed availability and pending approval for transport payment per [facility] - verbalizes understanding. Daughter also informed of worsening pneumonia. Daughter questioning treatment modalities at [facility] - informed per underwriter that as per suggested - placement of feeding tube and tracheostomy tube is high probability - verbalizes understanding.
[2019-01-16] MEDS: BUDESONIDE (INHALATION) 0.5 MG/2 ML NEB NEB SCH ×2 (09:56→18:16)
[2019-01-16] MEDS: cefTRIAXone 1GM/50ML D5W 50 ML IV SCH (10:04)
[2019-01-16] MEDS: amLODIPine BESYLATE 5 MG TAB PO SCH (10:04)
[2019-01-16] MEDS: CARVEDILOL 12.5 MG TAB PO SCH ×2 (10:05→22:00)
[2019-01-16] MEDS: ASPirin 81 mg TAB PO SCH (10:05)
[2019-01-16] MEDS: PANTOPRAZOLE 40 MG/10 ML VIAL INJ IV SCH (10:17)
--- NOTE | 2019-01-16 10:30 | NUR ---
I called [facility] Can Maker Cristina [phone] regarding the transfer order for this patient-she will speak with her diploma medical assistant regarding the request and will give me a call back to let me know if they are willing to authorize the transfer.
--- NOTE | 2019-01-16 10:38 | NUR ---
I called [facility] [phone] and spoke with Yessi Reddy, she said they do have a bed available for this patient under Dr. Sonu Melgar-he is an communications clerk. I called [facility] Clerk Cashier Cristina back to let her know that they do have a bed available and are just waiting for authorization.
--- NOTE | 2019-01-16 10:58 | NUR ---
Regional Sales Coordinator phoned MJ at Transfer Center - informed that we are still waiting for authorization from [facility] - states is aware and has spoke to Anna in CM.
[2019-01-16] MEDS: VANCOMYCIN 1,250 MG in D5W 5% 250 ML IV SCH (11:00)
--- NOTE | 2019-01-16 11:05 | NUR ---
Informed per Anna in CM that [facility] has approved transfer to [facility]. Metal Tile Setter informed patient's family of approval per [facility]- family members requesting typewriter assembly and parts inspector to inquire of accepting physician what POC would be and if it would be different than the POC being offered at [facility]. Family members state that if the only treatments being offered at [facility] - they will probably not agree to transfer to [facility].
--- NOTE | 2019-01-16 11:18 | NUR ---
Car Wash Supervisor gave abbreviated report to Jazmine ACE at [facility] per family's request to speak to re: POC at [facility] will reach this MD to get requested information and return call.
--- NOTE | 2019-01-16 11:26 | NUR ---
Received call back from Jazmine ACE at [facility] - states she did reach and asked about POC - MD requested 15 min to discuss with another physician about whether to accept patient. Elissa states she will return card writer hand's call. Technical Sme informed Anna in CM of above events.
--- NOTE | 2019-01-16 11:54 | NUR ---
Received call back from Jazmine ACE from [facility] - [facility] called her and stated he was still waiting to confer with another physician about transfer and not to take report on patient as he does not know if patient will be transferred. Bin Filler left message for Anna in re: above events. Bin Filler also informed MJ at [facility] of same events.
--- NOTE | 2019-01-16 12:46 | NUR ---
FOREX TRADER INFORMED PATIENT'S FAMILY STILL AWAITING CALL BACK FROM [facility] IN RESPONSE TO MD CONFERENCE RE: ACCEPTANCE OF PATIENT.
--- NOTE | 2019-01-16 13:30 | NUR ---
Received call from AMINTA at [facility] - song writer informed her that DV has not heard from [facility] re: POC for patient - states will call [facility] now and call song writer back.
--- NOTE | 2019-01-16 13:37 | NUR ---
Supervisor [employer] phoned patient's daughter Yoli and informed her of [facility]'s POC would not be different than what patient is currently receiving and what could be offered in the future - verbalized understanding and requested for transfer to [facility] to be cancelled. Supervisor [employer]atic F[employer]ilizer phoned Anna in CM et left message re: above events.
[2019-01-16] MEDS ORDERED: PIPERACILLIN-TAZOB 3.375GM 100 ML IV SCH (14:00)
--- NOTE | 2019-01-16 14:45 | NUR ---
visits et examines patient - new orders received.
--- NOTE | 2019-01-16 15:00 | NUR ---
visits et examines patient - no new orders received. Turner from [facility] to informed him of patient's daughter's decision to hold transfer and perform terminal wean - states [facility] will contact family to check on family's decision for organ donation.
[2019-01-16] MEDS: PIPERACILLIN-TAZOB 3.375GM 100 ML IV SCH ×2 (15:36→20:19)
--- NOTE | 2019-01-16 16:10 | NUR ---
Turner phones - given patient's next of kin info. - states will call her today re: possible organ donation.
--- NOTE | 2019-01-16 17:06 | NUR ---
Fentanyl increased this shift for intermittent agonal breathing noted - see IV flowsheet.
--- NOTE | 2019-01-16 17:15 | NUR ---
Turner from [facility] phones - states that clinical [facility] staff will arrive in AM.
--- NOTE | 2019-01-16 17:30 | NUR ---
BP 87/45 with mean 54 and sustaining - notified - states to start Levophed per orders - Levophed started at 5mcg - will continue to monitor BP.
--- NOTE | 2019-01-16 18:45 | NUR ---
[facility] phones - state they spoke to patient's daughter and she is aware of patient being registered organ donor. investigative writer informed caller that patient now on Levophed as of 1729 - caller states that clinical person will arrive at hospital this evening.
--- NOTE | 2019-01-16 20:00 | NUR ---
PATIENT WAS PLACED ON DNR STATUS TODAY. [facility] IS PLANNING ON PROCEEDING.
--- NOTE | 2019-01-16 20:58 | NUR ---
DR BEST GAVE PERMISSION TO ORDER [facility] LABS AND PROCEDURES.
--- NOTE | 2019-01-16 21:11 | NUR ---
[facility] HERE. THEIR LEAD , JOSÉ RAUSCH, STATING THAT THEY HAVE PERMISSION FROM THE FAMILY ON A RECORDED PHONE LINE TO PROCEED. I CALLED ER, THERE IS NO ONE TO PLACE AN ARTERIAL LINE. I CALLED DR BEST FOR ORDERS TO PROCEED. HE ANSWERED IMMEDIATELY AND GAVE PERMISSION TO ORDER EVERYTHING THE [facility] PERSONNEL NEED TO PROCEED.
--- NOTE | 2019-01-16 21:30 | NUR ---
INCREASED THE FIO2 TO 60% TO KEEP THE SAT GREATER THAN 95%
--- NOTE | 2019-01-16 21:54 | NUR ---
ORDERS PLACED FOR [facility] LABS AND PROCEDURES. CHEM PANEL, CBC, ETC DONE. UA, UA CX SENT. 12 LEAD BEING DONE NOW. [facility] HAS THEIR 20 YELLOW LAB TUBES. MIDLINE IS DRAWING.
--- NOTE | 2019-01-16 22:00 | NUR ---
HELD COREG AND APRESOLINE DUE TO THE PATIENT BEING ON LEVOPHED
--- NOTE | 2019-01-16 22:15 | NUR ---
ABG AND BLOOD CULTURES DONE. CALL TO RT TO NOTIFY HIM THAT WE NEED A NEW RESPIRATORY CULTURE.
[2019-01-16] MEDS: ATORVASTATIN 20 MG TAB PO SCH (22:29)
[2019-01-16] MEDS: methylPREDNISolone SOD SUCC 40 MG/ML VL IV SCH (22:29)
--- NOTE | 2019-01-16 22:30 | NUR ---
ULTRASOUND DONE. REQUESTING A STAT READ FOR THIS ULTRASOUND. REQUEST IN FOR THE CD FOR [facility].
[2019-01-16 22:34] LABS: Hematocrit 45.1 % (41.0-53.0); Hemoglobin 15.2 g/dL (13.5-17.5); Mean Corpuscular Hemoglobin 31.1 pg (28.0-32.0); Mean Corpuscular Hgb Conc. 33.8 g/dL (32.0-36.0); Platelet Count (auto) 99 10^3/uL (140-450); Red Cell Distribution Width 14.2 % (11.8-14.3); White Blood Cell 27.5 10^3/uL (4.4-10.8)
[2019-01-16 22:37] LABS: Basophils % (manual) 0 (0.0-2.0); Blast Cells 0; Eosinophils % (manual) 0 (0-7); Metamyelocytes % 0; Myelocytes % 0; Promyelocytes % 0; Reactive Lymphocytes 0
[2019-01-16 22:44] LABS: Albumin 1.8 g/dL (3.4-5.0); BUN/Creatinine Ratio 36.7; Calcium 8.6 mg/dL (8.5-10.1); Magnesium 2.8 mg/dL (1.6-2.6); Potassium 4.3 mmol/L (3.5-5.1)
[2019-01-16 22:48] LABS: Bilirubin, Direct 0.1 mg/dL (0-0.2); Bilirubin, Total 0.9 mg/dL (0.2-1.0); Total Protein 5.2 g/dL (6.4-8.2)
[2019-01-16 23:26] LABS: Band Neutrophils % (manual) 4; Lymphocytes % (manual) 3 (10.0-50.0); Monocytes % (manual) 4 (0-12)
--- NOTE | 2019-01-16 23:56 | NUR ---
RESPIRATORY CULTURE DONE. REPOSITIONED PATIENT. ORAL CARE. LUNGS CLEAR. LARGE URINE OUTPUT. URINE IS A CLEAR PALE YELLOW. CD DISC GIVEN TO [facility]
[2019-01-17] VITALS (102 sets, daily range): BP systolic 59–209; BP diastolic 31–113
[2019-01-17] MEDS: InsuLIN REG 1unit/0.01ml Soln (100units/ml) SC SCH ×4 (00:06→18:00)
[2019-01-17] MEDS: ACCU-CHEK COMFORT CURVE STRIP VI SCH ×6 (00:06→22:32)
[2019-01-17 00:27] LABS: INR 1.11 (0.9-1.15); Partial Thromboplastin Time 26.2 sec (23.64-32.05)
[2019-01-17 01:50] LABS: Urine Bacteria FEW /hpf (None Seen); Urine Blood 1+ /uL (Negative); Urine WBC 2 /hpf (0 - 3)
--- NOTE | 2019-01-17 02:00 | NUR ---
VSS. LEVOPHED REMAINS AT 4MCG. PUPILS REMAIN UNEQUAL. BREATHES A FEW BREATHS OVER THE AC OF 16. WEAK COUGH. GOOD URINE OUTPUT.
[2019-01-17] MEDS: VANCOMYCIN 1,250 MG in D5W 5% 250 ML IV SCH ×2 (02:19→20:00)
[2019-01-17] MEDS: PIPERACILLIN-TAZOB 3.375GM 100 ML IV SCH ×4 (02:19→20:00)
[2019-01-17] MEDS: FREE WATER GT SCH ×7 (02:19→21:46)
[2019-01-17] MEDS: fentaNYL Drip 2500mCg/250mlNS 250 ML IV SCH (02:23)
[2019-01-17] MEDS: IPRATROPIUM BROM 0.5 MG/2.5ML INH SOL NEB SCH ×6 (02:41→21:52)
[2019-01-17] MEDS: ALBUTEROL SULF 2.5 MG/0.5ML(0.5%) NEB SOLN NEB SCH ×6 (02:41→21:52)
--- NOTE | 2019-01-17 03:00 | NUR ---
ACCUCHECK 260
--- NOTE | 2019-01-17 03:40 | NUR ---
REGULAR INSULIN 10 UNITS FOR THE ACCUCHECK AT 0300 PER ORDER OF [facility]
--- NOTE | 2019-01-17 04:12 | NUR ---
BICFANNY HIGH. ORDER RECEIVED FROM [facility] FOR DIAMOX
[2019-01-17 04:37] LABS: Hematocrit 43.2 % (41.0-53.0); Hemoglobin 14.3 g/dL (13.5-17.5); Mean Corpuscular Hemoglobin 30.3 pg (28.0-32.0); Mean Corpuscular Hgb Conc. 33.2 g/dL (32.0-36.0); Mean Corpuscular Volume 91.2 fL (80.0-100.0); Platelet Count (auto) 93 10^3/uL (140-450); Red Blood Cells 4.73 10^6/uL (4.5-5.90); Red Cell Distribution Width 14.2 % (11.8-14.3); White Blood Cell 28.4 10^3/uL (4.4-10.8)
[2019-01-17 04:46] LABS: Basophils % (manual) 0 (0.0-2.0); Blast Cells 0; Eosinophils % (manual) 0 (0-7); Metamyelocytes % 0; Myelocytes % 0; Promyelocytes % 0; Reactive Lymphocytes 0
[2019-01-17 04:53] LABS: INR 1.08 (0.9-1.15); Partial Thromboplastin Time 27.6 sec (23.64-32.05)
[2019-01-17] MEDS ORDERED: acetaZOLAMIDE SODIUM 500 MG VL IV ONE (05:00)
[2019-01-17 05:11] LABS: Potassium 3.8 mmol/L (3.5-5.1)
--- NOTE | 2019-01-17 05:11 | NUR ---
CHG BATH AND FULL LINEN CHANGE. [facility] TOOK PICTURES OF HIS BACK.
[2019-01-17 05:20] LABS: Albumin 1.7 g/dL (3.4-5.0); BUN/Creatinine Ratio 34.7; Bilirubin, Direct 0.5 mg/dL (0-0.2); Bilirubin, Total 0.9 mg/dL (0.2-1.0); Calcium 8.5 mg/dL (8.5-10.1); Magnesium 2.5 mg/dL (1.6-2.6)
[2019-01-17] MEDS: hydrALAZINE HCL 25 MG TAB PO SCH ×3 (05:47→21:47)
[2019-01-17] MEDS: BUDESONIDE (INHALATION) 0.5 MG/2 ML NEB NEB SCH ×2 (06:16→21:52)
[2019-01-17 06:37] LABS: Band Neutrophils % (manual) 7; Lymphocytes % (manual) 1 (10.0-50.0); Monocytes % (manual) 3 (0-12)
--- NOTE | 2019-01-17 06:55 | NUR ---
Respiratory note: INCREASED FIO2 TO 80% TO MAINTAIN SPO2 ABOVE 95%.
[2019-01-17] MEDS: MIDAZOLAM DRIP 50 mg/50mL 50 ML IV SCH (07:49)
--- NOTE | 2019-01-17 08:00 | NUR ---
Right radial arterial line placed per at bedside.
--- NOTE | 2019-01-17 08:05 | NUR ---
Frequent agonal breaths noted - Fentanyl gtt increased - see IV flowsheet.
--- NOTE | 2019-01-17 08:30 | NUR ---
Neuro No cough/gag noted, no withdrawal of extremities to painful stimuli noted. Left pupil 7mm, right pupil 8mm and both are fixed.
[2019-01-17] MEDS: PANTOPRAZOLE 40 MG/10 ML VIAL INJ IV SCH (09:05)
[2019-01-17] MEDS: methylPREDNISolone SOD SUCC 40 MG/ML VL IV SCH ×2 (09:06→21:46)
[2019-01-17] MEDS: ASPirin 81 mg TAB PO SCH (09:15)
[2019-01-17] MEDS: CARVEDILOL 12.5 MG TAB PO SCH ×2 (09:30→21:47)
[2019-01-17] MEDS: amLODIPine BESYLATE 5 MG TAB PO SCH (09:30)
--- NOTE | 2019-01-17 09:30 | NUR ---
Unable to obtain arterial waveform - notified - states will come back and adjust.
--- NOTE | 2019-01-17 10:15 | NUR ---
at bedside - replaced femoral arterial catheter with radial arterial catheter.
[2019-01-17 12:28] LABS: INR 1.06 (0.9-1.15); Partial Thromboplastin Time 27.1 sec (23.64-32.05)
[2019-01-17 12:30] LABS: Basophils # (auto) 0.1 uL; Basophils % (auto) 0.3 % (0.0-2.0); Eosinophils # (auto) 0 uL; Hematocrit 43.1 % (41.0-53.0); Hemoglobin 14.5 g/dL (13.5-17.5); Lymphocytes # (auto) 0.4 uL; Lymphocytes % (auto) 1.4 % (10.0-50.0); Mean Corpuscular Hemoglobin 30.7 pg (28.0-32.0); Mean Corpuscular Hgb Conc. 33.5 g/dL (32.0-36.0); Mean Corpuscular Volume 91.6 fL (80.0-100.0); Monocytes % (auto) 3.7 % (0.0-12.0); Neutrophils # (auto) 25.9 uL; Neutrophils % (auto) 94.6 % (37.0-80.0); Platelet Count (auto) 87 10^3/uL (140-450); Red Blood Cells 4.71 10^6/uL (4.5-5.90); Red Cell Distribution Width 14.5 % (11.8-14.3); White Blood Cell 27.4 10^3/uL (4.4-10.8)
[2019-01-17 12:41] LABS: Albumin 1.7 g/dL (3.4-5.0); BUN/Creatinine Ratio 28.6; Bilirubin, Direct 0.5 mg/dL (0-0.2); Bilirubin, Total 0.8 mg/dL (0.2-1.0); Calcium 8.7 mg/dL (8.5-10.1); Phosphorus 3.2 mg/dL (2.5-4.90); Total Protein 5.2 g/dL (6.4-8.2)
[2019-01-17 13:01] LABS: Magnesium 2.6 mg/dL (1.6-2.6); Potassium 3.5 mmol/L (3.5-5.1)
--- NOTE | 2019-01-17 13:05 | NUR ---
Respiratory CRITICAL ABG. CALLED DR HAWKINS AND LEFT A VOICEMAIL. NO RETURN CALL YET.
[2019-01-17 13:51] LABS: Urine Bacteria NONE SEEN /hpf (None Seen); Urine Blood TRACE /uL (Negative); Urine Specific Gravity 1.016 (1.001-1.035); Urine WBC 1 /hpf (0 - 3)
[2019-01-17] MEDS: D5W 5% 1,000 ML IV SCH ×2 (14:30→18:30)
--- NOTE | 2019-01-17 14:30 | NUR ---
Librado Santiago at bedside for arterial line placement - placed successfully.
--- NOTE | 2019-01-17 15:05 | NUR ---
Arterial line leaking without waveform noted - attempted flushing and hemostasis with "Snow" gauze. Catheter noted to be kinked, sutures removed and line straightened - continues to leak without waveform noted. Arterial line removed.
--- NOTE | 2019-01-17 15:30 | NUR ---
visits et examines patient - no new orders received.
--- NOTE | 2019-01-17 17:19 | NUR ---
Respiratory note: AT BEDSIDE OBTAINING REPORT. MD Brittaney CALDWELL AT BEDSIDE, ORDER GIVEN TO INCREASED PEEP TO 7CMH2O. RN CHARLIE AT BEDSIDE AND AWARE OF CHANGE.
[2019-01-17] MEDS ORDERED: LACTATED RINGER'S 1,000 ML IV ONE (17:30)
[2019-01-17] MEDS ORDERED: VASOPRESSIN 50 UNITS in D5W 5% 247.5 ML IV SCH (17:30)
[2019-01-17] MEDS ORDERED: D5W 5% 1,000 ML IV SCH (17:45)
--- NOTE | 2019-01-17 17:54 | NUR ---
Respiratory note: RECEIVED PT ON VENT V3, ACCORDING TO REPORT PT IS A A [facility] PT AND IF ORDERED Q6H ABGS, @ [address] CALDWELL AT BEDSIDE, INCREASING PEEP, NOW AT 7CMH2O. BS ARE FINE COURSE SXD VIA ETT FOR SMALL THICK CREAMY FISH. MED NEB TX GIVEN INLINE WITHOUT ADVERSE REACTION NOTED. PT TOLERATING CHANGE WELL. RN CHARLIE Valle, AT BEDSIDE AND AWARE. PTS CURRENT TEMP AT THIS TIME IS 98.2F.
[2019-01-17] MEDS ORDERED: DEXTROSE (50%) 50ML SYRG IV PRN (18:15)
--- NOTE | 2019-01-17 18:22 | NUR ---
Respiratory note: ABG OBTAINED VIA A-LINE.
[2019-01-17 18:29] LABS: Urine WBC None Seen /hpf (0 - 3)
--- NOTE | 2019-01-17 18:43 | NUR ---
Respiratory note: FIO2 TITRATED VIA VENTILATOR FROM 80% TO 60%. DB Valle MADE AWARE OF CHANGE.
[2019-01-17 18:49] LABS: INR 1.06 (0.9-1.15); Partial Thromboplastin Time 27.2 sec (23.64-32.05)
[2019-01-17 18:51] LABS: Albumin 1.7 g/dL (3.4-5.0); Calcium 8.8 mg/dL (8.5-10.1); Magnesium 2.3 mg/dL (1.6-2.6); Potassium 3.6 mmol/L (3.5-5.1)
[2019-01-17 18:56] LABS: BUN/Creatinine Ratio 29.9; Bilirubin, Direct 0.5 mg/dL (0-0.2); Bilirubin, Total 0.8 mg/dL (0.2-1.0)
[2019-01-17 19:00] LABS: Urine Bacteria NONE SEEN /hpf (None Seen); Urine Blood 2+ /uL (Negative); Urine Specific Gravity 1.012 (1.001-1.035)
[2019-01-17 19:22] LABS: Basophils # (auto) 0 uL; Basophils % (auto) 0.1 % (0.0-2.0); Eosinophils # (auto) 0 uL; Hematocrit 42.8 % (41.0-53.0); Hemoglobin 13.8 g/dL (13.5-17.5); Lymphocytes # (auto) 0.5 uL; Lymphocytes % (auto) 2.2 % (10.0-50.0); Mean Corpuscular Hemoglobin 30.3 pg (28.0-32.0); Mean Corpuscular Hgb Conc. 32.2 g/dL (32.0-36.0); Monocytes # (auto) 1.2 uL; Neutrophils # (auto) 23.3 uL; Neutrophils % (auto) 92.7 % (37.0-80.0); Nucleated Red Blood Cells % 0.1 %; Platelet Count (auto) 84 10^3/uL (140-450); Red Blood Cells 4.56 10^6/uL (4.5-5.90); Red Cell Distribution Width 14.4 % (11.8-14.3); White Blood Cell 25.1 10^3/uL (4.4-10.8)
--- NOTE | 2019-01-17 19:30 | NUR ---
Endorsed care of patient to Ivana ACE.
[2019-01-17] MEDS: NOREPINEPHRINE 8 MG/250ML KIT 250 ML IV SCH (20:00)
[2019-01-17] MEDS: DESMOPRESSIN ACET 4 MCG/1 ML AMPULE IV SCH (20:00)
--- NOTE | 2019-01-17 20:00 | NUR ---
ADMITTED FROM HOME AFTER COLLAPSING. INTUBATED. BROUGHT TO ICU 112. ORAL ETT TO VENTILATOR. ORAL NGT TO LIS DRAINING GREEN/BROWN LIQUID. ORAL CARE DONE. PUPILS UNEQUAL AND FIXED. OCCASIONALLY DISPLAYS AN AGONAL TYPE RESPIRATORY PATTERN. FENTANYL AT 125 MCG. SBP IS STEADY MOST OF THE TIME UNTIL HE GETS ORAL CARE OR YOU SUCTION HIM AND THEN THE BLOOD PRESSURE GOES HIGH. BP SUPPORTED WITH LEVOPHED. MIDLINE INSERTED ON THE RIGHT ARM AC AREA. NOW THE BLOOD PRESSURE CUFF IS ON THE LEFT LEG. ARTERIAL LINE LEFT RADIAL SUTURED IN AND SITE IS COVERED WITH A CLEAR DRESSING. THE ART LINE IS NOT ALWAYS RELIABLE. CUFF PRESSURE SEQUENCE IS Q 15 MINUTES. LUNGS CLEAR. SUCTIONING A LARGE AMOUNT OF CREAMY SECRETIONS. ABDOMEN SOFT. NO BM. 2+ PITTING EDEMA IN ARMS AND LEGS. ALL PULSES PALPABLE AND WEAK. DRUMMOND IN PLACE DRAINING A LARGE AMOUNT OF CLEAR YELLOW LIQUID. DDAVP GIVEN. NA IS 161. STARTED A FREE WATER DRIP AT 250CC/HR. SCD ON RIGHT LOWER LEG. HEELS OFF BED. [facility] INVOLVED . PLAN FOR HARVESTING TOMORROW WITH A DR ALAMO. Q 6 HOUR LABS. NEW: INSULIN DRIP. NEW: D5W AT 150CC/HR TODAY. Q 90 MINUTE ACCUCHECKS. NSR WITHOUT ECTOPY.
[2019-01-17] MEDS: InsuLIN R (HUMAN) 100 UNITS in SODIUM CHL 0.9% 99 ML IV SCH (20:36)
--- NOTE | 2019-01-17 20:38 | NUR ---
Midline Placement: Patient educated on need for midline placement. All risks and benefits explained and all questions and concerns addresses prior to procedure. 3Fr 20cm midline inserted via right brachial vein using Ultrasound. Sterile technique utilized. Blood return obtained from the single lumen and flushed easily with NS using proper technique. Midline secured with saline lock; biodisc and occlusive dressing applied. Primary RN notified. Midline lot #[id number]. Internal length 20cm External length 0cm
[2019-01-17] MEDS: ATORVASTATIN 20 MG TAB PO SCH (21:48)
--- NOTE | 2019-01-17 21:52 | NUR ---
Respiratory note: AT BEDSIDE FOR ROUTINE VENT CHECK. NO CHANGES MADE. MED NEB TX GIVEN INLINE WITHOUT ADVERSE REACTION NOTED. DB Cruz AT BEDSIDE.
--- NOTE | 2019-01-17 21:55 | NUR ---
LABILE BLOOD PRESSURE RANGING FROM 89 TO 140. FOLLOWING BOTH THE ART LINE AND CUFF PRESSURES. NSR WITHOUT ECTOPY. HR STEADY. NO FEVER. STILL OCCASIONALLY HAS HIS OWN INTRINSIC RESPIRATORY PATTERN. OVERBREATHING THE VENTILATOR BY 2-3. PUPILS REMAIN UNEQUAL AND FIXED.SBP DROP. INCREASED TH LEVOPHED
--- NOTE | 2019-01-17 22:53 | NUR ---
COMPLETE LINEN CHANGE
--- NOTE | 2019-01-17 22:54 | NUR ---
REPOSITIONED TO LEFT. JUST THE MOVEMENT SHOT THE BLOOD PRESSURE UP. ORAL CARE.
[2019-01-18] VITALS (52 sets, daily range): BP systolic 76–249; BP diastolic 34–185
--- NOTE | 2019-01-18 | NUR ---
TEMP 97.8. BLANKET APPLIED. NGT INTAKE OVER 4 HOURS 1000CC, RESIDUAL 660CC. MIDNIGHT LABS SENT. RARE PAC, PVC. SBP: HE SPIKED AND CAME DOWN TO A NORMAL BLOOD PRESSURE IN 15 MINUTES.
--- NOTE | 2019-01-18 00:30 | NUR ---
LABS SENT. UA SENT. ABG DONE. RESULTS ON ABG GOOD.
[2019-01-18] MEDS: D5W 5% 1,000 ML IV SCH ×2 (00:40→09:51)
[2019-01-18 01:01] LABS: Basophils # (auto) 0.1 uL; Basophils % (auto) 0.2 % (0.0-2.0); Eosinophils # (auto) 0 uL; Eosinophils % (auto) 0.1 % (0.0-7.0); Hematocrit 42.4 % (41.0-53.0); Hemoglobin 14.2 g/dL (13.5-17.5); Lymphocytes # (auto) 0.6 uL; Lymphocytes % (auto) 2.3 % (10.0-50.0); Mean Corpuscular Hemoglobin 30.7 pg (28.0-32.0); Mean Corpuscular Hgb Conc. 33.4 g/dL (32.0-36.0); Mean Corpuscular Volume 91.8 fL (80.0-100.0); Monocytes % (auto) 3.9 % (0.0-12.0); Neutrophils # (auto) 22.7 uL; Neutrophils % (auto) 93.5 % (37.0-80.0); Platelet Count (auto) 75 10^3/uL (140-450); Red Blood Cells 4.62 10^6/uL (4.5-5.90); Red Cell Distribution Width 14.5 % (11.8-14.3); White Blood Cell 24.3 10^3/uL (4.4-10.8)
[2019-01-18] MEDS: fentaNYL Drip 2500mCg/250mlNS 250 ML IV SCH (01:09)
[2019-01-18 01:16] LABS: INR 1.06 (0.9-1.15); Partial Thromboplastin Time 27.3 sec (23.64-32.05)
[2019-01-18 01:19] LABS: Albumin 1.8 g/dL (3.4-5.0); Calcium 8.9 mg/dL (8.5-10.1); Magnesium 2.2 mg/dL (1.6-2.6); Potassium 3.1 mmol/L (3.5-5.1)
[2019-01-18] MEDS: ACCU-CHEK COMFORT CURVE STRIP VI SCH ×9 (01:44→12:00)
[2019-01-18 01:58] LABS: BUN/Creatinine Ratio 31.6; Bilirubin, Direct 0.4 mg/dL (0-0.2); Bilirubin, Total 0.6 mg/dL (0.2-1.0); Phosphorus 2.3 mg/dL (2.5-4.90); Total Protein 5.3 g/dL (6.4-8.2)
[2019-01-18] MEDS ORDERED: POTASSIUM CHL 20MEQ/100ML 100 ML IV ONE ×2 (02:05→02:15)
[2019-01-18] MEDS: ALBUTEROL SULF 2.5 MG/0.5ML(0.5%) NEB SOLN NEB SCH ×2 (02:07→05:48)
[2019-01-18] MEDS: IPRATROPIUM BROM 0.5 MG/2.5ML INH SOL NEB SCH ×2 (02:07→05:48)
--- NOTE | 2019-01-18 02:15 | NUR ---
SINUS BRADYCARDIA 54
[2019-01-18] MEDS: FREE WATER GT SCH ×7 (02:20→12:00)
[2019-01-18] MEDS: PIPERACILLIN-TAZOB 3.375GM 100 ML IV SCH ×2 (02:22→09:24)
--- NOTE | 2019-01-18 02:30 | NUR ---
TEMP 94.7 AXILLARY. SILAS MCCURDY STARTED. SINUS BRADYCARDIA 54. SBP STABLE ON LEVOPHED 5 MCG. SPOKE WITH [facility] PERSONNEL MAEVE. DISCUSSED ADDING DOPAMINE FOR THE HEART RATE. PLAN: WARM THE PATIENT AND USE THE LEVOPHED TO SUPPORT THE BLOOD PRESSURE.
--- NOTE | 2019-01-18 03:47 | NUR ---
TEMP 94.8. SILAS MCCURDY ON. HR BETTER AT 60 FROM 54. LEVOPHED AT 10 MCG.
[2019-01-18 03:53] LABS: Hematocrit 37.7 % (41.0-53.0); Hemoglobin 12.7 g/dL (13.5-17.5); Mean Corpuscular Hemoglobin 30.7 pg (28.0-32.0); Mean Corpuscular Hgb Conc. 33.6 g/dL (32.0-36.0); Mean Corpuscular Volume 91.3 fL (80.0-100.0); Platelet Count (auto) 77 10^3/uL (140-450); Red Blood Cells 4.13 10^6/uL (4.5-5.90); Red Cell Distribution Width 14.2 % (11.8-14.3); White Blood Cell 26.8 10^3/uL (4.4-10.8)
[2019-01-18 04:14] LABS: Albumin 1.3 g/dL (3.4-5.0); Magnesium 2.3 mg/dL (1.6-2.6); Potassium 3.7 mmol/L (3.5-5.1)
[2019-01-18 04:16] LABS: BUN/Creatinine Ratio 35.2; Bilirubin, Direct 0.3 mg/dL (0-0.2); Bilirubin, Total 0.6 mg/dL (0.2-1.0); Phosphorus 2.2 mg/dL (2.5-4.90); Total Protein 4.6 g/dL (6.4-8.2)
[2019-01-18 04:18] LABS: INR 1.12 (0.9-1.15); Partial Thromboplastin Time 30.9 sec (23.64-32.05)
[2019-01-18 04:25] LABS: Basophils % (manual) 0 (0.0-2.0); Blast Cells 0; Metamyelocytes % 0; Myelocytes % 0; Promyelocytes % 0; Reactive Lymphocytes 0
[2019-01-18 05:01] LABS: Band Neutrophils % (manual) 2; Eosinophils % (manual) 1 (0-7); Lymphocytes % (manual) 6 (10.0-50.0); Monocytes % (manual) 4 (0-12)
[2019-01-18] MEDS: hydrALAZINE HCL 25 MG TAB PO SCH (05:55)
--- NOTE | 2019-01-18 06:00 | NUR ---
TEMP 98.4. SBP IN THE 90S WITH LEVOPHED SUPPORT. HAS NOT TAKEN BREATHS ABOVE THE DIALED IN RATE SINCE 299. SILAS JALLOHGGER REMAINS ON BUT AT THE LOWEST RATE NOW. CUFF AND ART LINE SIMILAR. INSULIN DRIP REMAINS AT 5 UNITS/HR.
--- NOTE | 2019-01-18 06:52 | NUR ---
[facility] SENT WITH LAB PERSONNEL
[2019-01-18] MEDS: InsuLIN R (HUMAN) 100 UNITS in SODIUM CHL 0.9% 99 ML IV SCH (07:30)
--- NOTE | 2019-01-18 07:30 | NUR ---
REPORT: REPORT RECEIVED FROM RETURN CLERK RN TO RESUME CARE OF PT.
[2019-01-18 07:45] LABS: Urine Bacteria NONE SEEN /hpf (None Seen); Urine Blood 1+ /uL (Negative); Urine Hyaline Cast FEW /lpf (0 - 2); Urine Mucus FEW (None Seen); Urine Specific Gravity 1.034 (1.001-1.035); Urine WBC 4 /hpf (0 - 3)
[2019-01-18] MEDS: MIDAZOLAM DRIP 50 mg/50mL 50 ML IV SCH (07:52)
--- NOTE | 2019-01-18 08:00 | NUR ---
OPEN: ASSESSMENT COMPLETE. SEE NURSING FLOW SHEET FOR UPDATED DETAILS. PT IS NON-VERBAL, INTUBATED, SEDATED ON FENTANYL AT TIME, RIGHT PUPIL NON-REACTIVE AND 6 IN SIZE, LEFT PUPIL NON-REACTIVE AND 7 IN SIZE. NO COUGH. NO GAG. NO FOLLOWING COMMANDS, NO MOVEMENTS AND APPEARS TO BE IN DISCOMFORT AT TIME. NO SPONTANEOUS BREATHS. INTUBATED WITH SIZE 8.0/24 LIP LINE. AC16, TV500,PEEP7, 60%FI02. OGT IN PLACE THAT IS TO FREE WATER INFUSION AT 250ML/HR PER MD ORDERS. DRUMMOND CATHETER IN PLACE DRAINING DARK JOHANNA URINE TO GRAVITY. SCD'S ON BILATERAL LOWER EXTREMITIES. MIDLINE TO RIGHT UPPER ARM RUNNING INSULIN GTT AT 5UNITS/HR. IV TO LEFT HAND AC RUNNING D5W AT 150ML/HR. IV TO RIGHT HAND-SL. MIDLINE TO LEFT UPPER ARM RUNNING LEVOPHED GTT AT 10MCG/MIN AND FENTANYL GTT AT 125MCG/MIN. ARTERIAL LINE TO LEFT RADIAL ARTERY WITH ADEQUATE WAVEFORM AND GOOD BLOOD RETURN. ALL MONITORS HOOKED UP TO PT FOR CONTINUOUS MONITORING. PATIENT IS A DNR AT TIME PER KAUSHIK SANCHEZ. PATIENT IS TO GO TO OPERATING ROOM TODAY BETWEEN 10-11 FOR ORGAN DONATION. ALL MD'S AWARE AND FAMILY AWARE. SHARED POC WITH PT BUT UNABLE TO VERBALIZE UNDERSTANDING AT TIME. CONTINUE CARE FOR SHIFT.
--- NOTE | 2019-01-18 08:00 | NUR ---
LAB: CALLED LAB AND NOTIFIED THAT REPEAT LABS WILL BE SENT. BLOOD SENT.
--- NOTE | 2019-01-18 08:10 | NUR ---
TEMP/OGT: TEMP OF 99.1. REMOVED BEAR CALLI. PER [facility], OK TO STOP FREE WATER VIA OGT AND TO ATTACH OGT TO SUCTION. DONE PER RECOMMENDATION AND WILL NOTIFY
[2019-01-18 08:56] LABS: Basophils # (auto) 0 uL; Basophils % (auto) 0.1 % (0.0-2.0); Eosinophils # (auto) 0 uL; Hematocrit 35.7 % (41.0-53.0); Lymphocytes # (auto) 0.6 uL; Mean Corpuscular Hemoglobin 30.6 pg (28.0-32.0); Mean Corpuscular Hgb Conc. 33.8 g/dL (32.0-36.0); Mean Corpuscular Volume 90.6 fL (80.0-100.0); Monocytes # (auto) 0.8 uL; Monocytes % (auto) 3.4 % (0.0-12.0); Neutrophils # (auto) 20.5 uL; Neutrophils % (auto) 93.5 % (37.0-80.0); Platelet Count (auto) 76 10^3/uL (140-450); Red Blood Cells 3.94 10^6/uL (4.5-5.90); Red Cell Distribution Width 13.9 % (11.8-14.3); White Blood Cell 21.9 10^3/uL (4.4-10.8)
[2019-01-18 09:10] LABS: Albumin 1.5 g/dL (3.4-5.0); BUN/Creatinine Ratio 34.7; Bilirubin, Direct 0.3 mg/dL (0-0.2); Calcium 8.2 mg/dL (8.5-10.1); Potassium 3.3 mmol/L (3.5-5.1)
[2019-01-18 09:12] LABS: Bilirubin, Total 0.5 mg/dL (0.2-1.0); Total Protein 4.5 g/dL (6.4-8.2)
--- NOTE | 2019-01-18 09:20 | NUR ---
FAMILY: FAMILY IN AT BEDSIDE. UPDATED ON PT STATUS AND ALL QUESTIONS AND CONCERNS ADDRESSED. FAMILY SPEAKING TO [facility] AND ALL QUESTIONS AND CONCERNS ADDRESSED. PLAN TO CARRY OUT ORDERS.
[2019-01-18] MEDS: DESMOPRESSIN ACET 4 MCG/1 ML AMPULE IV SCH (09:23)
[2019-01-18] MEDS ORDERED: FUROSEMIDE 100 MG/10ML VIAL IV ONE (09:45)
[2019-01-18] MEDS ORDERED: HEPARIN SODIUM (PORCINE) 1000 UNITS/ML 30ML VIAL IV ONE (09:45)
[2019-01-18] MEDS: methylPREDNISolone SOD SUCC 40 MG/ML VL IV SCH (09:47)
[2019-01-18] MEDS: PANTOPRAZOLE 40 MG/10 ML VIAL INJ IV SCH (09:47)
--- NOTE | 2019-01-18 09:57 | NUR ---
PAGE: PAGED DR. BEST TO UPDATE THAT PATIENT WILL BE TAKEN TO OR TODAY BETWEEN [phone] FOR TERMINAL WEAN AND ORGAN DONATION. FAMILY MADE AWARE. CALLED FOR ORDERS AND TO REQUEST COMFORT MEASURES IF NEEDED FOR TERMINAL WEAN.
[2019-01-18] MEDS: ASPirin 81 mg TAB PO SCH (10:00)
[2019-01-18] MEDS: CARVEDILOL 12.5 MG TAB PO SCH (10:00)
[2019-01-18] MEDS: amLODIPine BESYLATE 5 MG TAB PO SCH (10:00)
[2019-01-18] MEDS ORDERED: FUROSEMIDE INJECTION 10 ML ONE (10:04)
--- NOTE | 2019-01-18 10:07 | NUR ---
MD CALL: DR. BEST CALLED BACK. ORDERS RECEIVED. PLAN TO CARRY OUT.
[2019-01-18] MEDS ORDERED: MORPHINE SULFATE 4 MG/ML SYR/VIAL ONE (10:14)
[2019-01-18] MEDS ORDERED: LORazepam 2MG/ML-1ML VIAL ONE (10:14)
[2019-01-18] MEDS ORDERED: MORPHINE SULF INJ 2 MG/ML SYRINGE 1ML IV PRN (10:15)
[2019-01-18] MEDS ORDERED: MORPHINE SULFATE 4 MG/ML SYR/VIAL IV PRN (10:15)
[2019-01-18] MEDS ORDERED: LORazepam 2MG/ML-1ML VIAL IV PRN ×2 (10:15)
--- NOTE | 2019-01-18 10:15 | NUR ---
TIME FOR OR: NOTIFIED THAT OPERATING ROOM TIME WOULD BE BETWEEN [phone]. FAMILY AWARE.
--- NOTE | 2019-01-18 10:33 | NUR ---
BLOOD PRESSURE/LEVOPHED: INCREASED LEVOPHED GTT TO 14MCG/MIN. BLOOD PRESSURE 89/46 AND 100MG OF LASIX GIVEN. WILL CONTINUE TO MONITOR.
--- NOTE | 2019-01-18 10:48 | NUR ---
LEVOPHED/BP: DECREASED LEVOPHED GTT TO 11MCG/MIN. BLOOD PRESSURE 142/78. WILL CONTINUE TO MONITOR.
[2019-01-18] MEDS ORDERED: VANCOMYCIN 1,250 MG in D5W 5% 250 ML IV SCH (11:00)
--- NOTE | 2019-01-18 11:06 | NUR ---
OR: OR CALLED. READY FOR PATIENT TRANSPORT TO OR. FAMILY AND [facility] MADE AWARE. PT CONNECTED TO PORTABLE MONITOR, PORTABLE VENTILATOR WITH RT PRESENT AND ALL BELONGINGS GIVEN TO FAMILY. FAMILY ESCORTED OUT OF ROOM, SENT TO WAITING ROOM AND WITH COORDINATOR.
--- NOTE | 2019-01-18 11:26 | NUR ---
OR: PT IN OR.
--- NOTE | 2019-01-18 11:43 | NUR ---
MD CALL: CALLED DR. ALAMO TO NOTIFY THAT PATIENT IS READY IN THE OPERATING ROOM FOR TERMINAL WEAN AND ORGAN DONATION. MD TO BE PRESENT FOR EXTUBATION.
--- NOTE | 2019-01-18 11:55 | NUR ---
EXTUBATION: PT EXTUBATED FOR TERMINAL WEAN AND ORGAN DONATION. EXTUBATED WITH DR. ALAMO AT BEDSIDE AND PERFORMED BY RT. [facility] PRESENT. FAMILY MADE AWARE OF ALL PLAN OF CARE AND VERBALIZED UNDERSTANDING.
--- NOTE | 2019-01-18 11:56 | NUR ---
LEVOPHED GTT: TURNED OFF LEVOPHED GTT, INSULIN AND D5W FOR TERMINAL WEAN. PT REMAINS ON FENTANYL AT TIME FOR COMFORT. DR. ALAMO AT BEDSIDE AND ORDERS RECEIVED.
--- NOTE | 2019-01-18 12:23 | NUR ---
TIME OF : AFTER TERMINAL WEAN, PT NOW ASYSTOLE, NO PULSE AND NO BREATHING. DR. ALAMO AT BEDSIDE AND DECLARED TIME OF TO BE 1223. FAMILY NOTIFIED.
--- NOTE | 2019-01-18 12:24 | NUR ---
[facility]: [facility] AT BEDSIDE. HARVESTING BEGAN BY [facility] HARVESTING TEAM.
--- NOTE | 2019-01-18 13:40 | NUR ---
ARRIVAL TO ICU: AFTER ORGAN DONATION COMPLETE, POSTMORTEM CARE PROVIDED IN OPERATING ROOM. MIDLINE X2, IV X2, DRUMMOND CATHETER AND ARTERIAL LINE REMOVED. PT CLEANSED AND PLACED INTO BODY BAG. 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
--- NOTE | 2019-01-18 14:24 | NUR ---
MORTUARY: CALLED MORTUARY TO NOTIFY THAT PATIENT IS READY FOR PICK-UP.
--- NOTE | 2019-01-18 16:23 | NUR ---
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 [employer] HERE AT BEDSIDE. CONFIRMED PATIENT WITH TOE TAG AND CORRECT IDENTIFICATION. PATIENT LEFT WITH NO BELONGINGS FAMILY TOOK HOME.
== END 2019-01-18 17:27 | disposition expired | DRG 130 ==
LOC: EDBD 01:15 → ER 01:19 → TELE 01:20 → ICU WEST 09:35
PROVIDERS: ADMIT Nurse Practitioner; ATTEND Internal Medicine
PROC: 5A1955Z Respiratory Ventilation, Greater than 96 Consecutive Hours (ICD-10-PCS; principal; 2019-01-07)
PROC: 0BH17EZ Insertion of Endotracheal Airway into Trachea, Via Natural or Artificial Opening (ICD-10-PCS; 2019-01-07)
PROC: 5A12012 Performance of Cardiac Output, Single, Manual (ICD-10-PCS; 2019-01-07)
PROC: 05HY33Z Insertion of Infusion Device into Upper Vein, Percutaneous Approach (ICD-10-PCS; 2019-01-17)
DX: J96.01 Acute respiratory failure with hypoxia (principal); I46.9 Cardiac arrest, cause unspecified; G93.6 Cerebral edema; I21.4 Non-ST elevation (NSTEMI) myocardial infarction; J15.211 Pneumonia due to Methicillin susceptible Staphylococcus aureus; I50.9 Heart failure, unspecified; J45.901 Unspecified asthma with (acute) exacerbation; R56.9 Unspecified convulsions; J44.0 Chronic obstructive pulmonary disease with (acute) lower respiratory infection; Z66 Do not resuscitate; J95.851 Ventilator associated pneumonia; G93.1 Anoxic brain damage, not elsewhere classified; I60.9 Nontraumatic subarachnoid hemorrhage, unspecified; J96.02 Acute respiratory failure with hypercapnia; Z93.0 Tracheostomy status; J44.1 Chronic obstructive pulmonary disease with (acute) exacerbation; R40.20 Unspecified coma; N17.9 Acute kidney failure, unspecified; F12.10 Cannabis abuse, uncomplicated; D72.829 Elevated white blood cell count, unspecified; F15.20 Other stimulant dependence, uncomplicated; B19.20 Unspecified viral hepatitis C without hepatic coma; E87.0 Hyperosmolality and hypernatremia; F10.10 Alcohol abuse, uncomplicated; N18.9 Chronic kidney disease, unspecified; F17.210 Nicotine dependence, cigarettes, uncomplicated; Z79.82 Long term (current) use of aspirin; Z82.49 Family history of ischemic heart disease and other diseases of the circulatory system; Z99.11 Dependence on respirator [ventilator] status
CPT/HCPCS: 36415; 36600; 70450; 71045; 76700; 76775; 80048; 80053; 80076; 80202; 80307; 81001; 82150; 82248; 82565; 82805; 82962; 82977; 83525; 83690; 83735; 84100; 84484; 85007; 85025; 85027; 85610; 85730; 86703; 86706; 86803; 86900; 86901; 87040; 87070; 87077; 87081; 87086; 87186; 87205; 87340; 92950; 93005; 93306; 94002; 94003; 94640; 95819; A4618; C9113; G0378; J0696; J1100; J1644; J1815; J2250; J2543; J3480; J7060